=== PATIENT | male | born 1965 | race Caucasian/White ===

== ENCOUNTER → 2017-10-25 | Outpatient (CLI) | payer BC ==
--- NOTE | 2017-10-25 14:41 | MR ---
EXAMINATION TYPE: MR cervical spine wo con DATE OF EXAM: 10/25/2017 8:55 AM COMPARISON: NONE HISTORY: Pain, numbness and tingling into left arm Multiplanar MultiSpin echo imaging of the cervical spine was performed. Comparison: none C2-C3: No evidence for degenerative disc disease. No disc bulge/herniation or protrusion. No Canal stenosis. Foramina are patent bilaterally. C3-C4: No evidence for degenerative disc disease. No disc bulge/herniation or protrusion. No Canal stenosis. Degenerative changes cervical apophyseal joints with left foraminal encroachment. Moderate to severe in degree. C4-C5: No evidence for degenerative disc disease. No disc bulge/herniation or protrusion. No Canal stenosis. Foramina are patent bilaterally. C5-C6: There is mild disc desiccation. Right paracentral disc bulge with partial encapsulating spur r esulting in right foraminal encroachment. No evidence for central stenosis or cord contact. C6-C7: No evidence for degenerative disc disease. No disc bulge/herniation or protrusion. No Canal stenosis. Foramina are patent bilaterally. C7-T1: No evidence for degenerative disc disease. No disc bulge/herniation or protrusion. No Canal stenosis. Foramina are patent bilaterally. Cervical segments are intact. There is normal alignment. Cervical spinal cord is of normal signal. Craniovertebral junction relationships are within normal limits. IMPRESSION: 1. Right paracentral disc endplate complex C5-6 resulting in right foraminal encroachment. 2. Left foraminal encroachment at C3-4.
== END | disposition home or self-care (01) ==
LOC: RADMRIMAIN 07:54
PROVIDERS: ATTEND Family Medicine
DX: M54.2 Cervicalgia (principal)
CPT/HCPCS: 72141

== ENCOUNTER → 2018-01-02 | Outpatient (CLI) | payer BC ==
[2017-12-31 15:47] VITALS: BMI 27.1
[2018-01-02 13:03] VITALS: BP 147/93; PULSE 87; RESP 18; TEMP 98
--- NOTE | 2018-01-03 08:35 | P.PAINPG ---
Subjective Progress Note Date: 01/02/18 ( leg whenever) Principal diagnosis: Cervical radiculopathy, cervical myofascial pain Is a very pleasant 52-year-old gentleman with a history of neck pain and left arm pain. This began when he was at work driving a high low. He reports he has significant difficulty now with turning his head to the side. When he turns it to the left he gets shooting pain down his left arm to approximately the mid humerus. He denies any right-sided symptoms. He denies any lumbar radicular symptoms. He denies any bowel or bladder dysfunction. 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 Objective - Vital Signs Vital signs: Vital Signs Temp 98 F 01/02/18 12:53 Pulse 87 01/02/18 12:53 Resp 18 01/02/18 12:53 BP 147/93 01/02/18 12:53 Pulse Ox - Exam General: Patient is not sedated. He appears in no acute distress. He answers all questions appropriate. Respiratory: Breathing is unlabored and without any audible wheezes Cardiac: Regular in rate and rhythm Abdomen: Soft nontender, nondistended Extremities: No cyanosis clubbing or edema Musculoskeletal: No focal motor deficits in the upper or lower extremities. Palpation of the left trapezius reveals a large trigger point. Pressing into this trigger point elicits left cervical radicular symptoms. Range of motion for neck rotation is decreased to the left and normal to the right. Neck flexion is decreased. Neck extension is normal. Spurling's maneuver is negative. Neurologic: No focal sensory deficits in the upper or lower extremities. Reflexes are normal and intact bilaterally in the extremities Assessment and Plan Assessment: Medications: I advised the patient to continue with conservative medications such as Tylenol or anti-inflammatory medications. Interventions: The patient may benefit from cervical trigger point injections or a cervical epidural steroid injection. He has not had any other conservative therapy including physical therapy. I discussed with him the risks and benefits of both of these procedures. These include pneumothorax from the trigger point injections as well as potential bleeding infection nerve damage and headache from the cervical epidural steroid injection. I would strongly advised him to continue with a conservative course of therapy at this time. We could proceed with interventional procedures in the future if physical therapy does not alleviate his symptoms. Referrals: I referred the patient physical therapy for a one month treatment session. Testing ordered: None Psychological: He denies depression or anxiety. I will not refer him to a psychologist today. Follow-up: Patient will follow-up in our clinic in 1 month after he has completed physical therapy for reevaluation. (1) Cervical radiculopathy Current Visit: Yes Status: Acute Code(s): M54.12 - RADICULOPATHY, CERVICAL REGION SNOMED Code(s): 35079962 (2) Myofascial pain syndrome, cervical Current Visit: Yes Status: Acute Code(s): M79.1 - MYALGIA SNOMED Code(s): 890694943 PQRS Measure Charge Sheet Measure #130: Documentation of Current Meds in Medical Chart: Patient not eligible for medications to be documented Measure #226: Tobacco Use: Screen & Cessation Intervention: Pt screened for tobacco use AND intervention given Measure #111: Pneumonia Vaccination: Pneumococcal vaccine NOT administered or previously given Measure #47: Advance Care Plan: Advance care planning discussed & documented, pt chose/unable to give Measure #412: Opioid Treatment Agreement: No documentation of signed opioid treatment agreement Measure #408: Opioid Therapy Follow-up Evaluation: Patient had NO f/u eval minimum every 3 months during opioid therapy Measure #317: Preventitive Care & Scrn High Bld Press & F/U: Normal blood pressure, f/u not required Measure #128: Body Mass Index (BMI) Screening & Follow-up: BMI documented within normal parameters Measure #131: Pain Assessment & Follow-up: Pain positive & plan documented Measure #431: Unhealthy Alcohol Use Preventative Care & Scrn: Patient not identified as an unhealthy alcohol user PQRS Narrative: Smoking Status Current every day smoker Do You Want the Pneumonia No Vaccine AT THIS TIME? Blood Pressure 147/93 Pain Intensity [Neck] 8 Scale Used Numeric (1 - 10) Hx Alcohol Use (MH) No Home Medications: Ambulatory Orders Dulaglutide [Trulicity] 1.5 mg SQ FR 12/31/17 Insulin Degludec [Tresiba Flextouch U-200] 16 unit SQ QAM 12/31/17 Montelukast [Singulair] 10 mg PO HS 12/31/17 Naproxen Sodium [Aleve] 440 mg PO DAILY 12/31/17 metFORMIN HCL [Glucophage] 500 mg PO BID 12/31/17 Controlled Substance Measures - Controlled Substance Measures Is patient prescribed a controlled substance at discharge?: No
== END | disposition home or self-care (01) ==
LOC: PNWHC3 12:01
PROVIDERS: ATTEND Pain Medicine Pain Medicine
DX: M54.12 Radiculopathy, cervical region (principal); M79.1 Myalgia; F17.200 Nicotine dependence, unspecified, uncomplicated; Z79.899 Other long term (current) drug therapy; Z79.84 Long term (current) use of oral hypoglycemic drugs; Z79.4 Long term (current) use of insulin
CPT/HCPCS: 99211

== ENCOUNTER → 2018-02-19 | Outpatient (CLI) | payer BC ==
[2018-02-19 11:54] VITALS: BP 176/97; PULSE 98; RESP 18; TEMP 98
--- NOTE | 2018-02-20 07:21 | P.PAINPG ---
Subjective Progress Note Date: 01/19/18 This is a follow-up visit for this 52 years old male with a chronic history of severe neck pain, patient diagnosed with cervical foraminal stenosis and cervical bulging disc disease, and myofascial pain syndrome, patiens was seen a few weeks ago and he was r referred ,to have physical therapy done, patient reported that he couldn't do physical therapy because of his working schedule, he cannot take times off, to do physical therapy, and he is asking if anything else can be done to improve and treat his pain, he denies any motor or sensory deficits he denies any change in the bowel movement or urination he denies any fever or night sweats Objective - Vital Signs Vital signs: Vital Signs Temp 98 F 02/19/18 11:46 Pulse 98 02/19/18 11:46 Resp 18 02/19/18 11:46 BP 176/97 02/19/18 11:46 Pulse Ox 97 02/19/18 11:46 Intake & Output 02/19/18 02/20/18 02/20/18 18:59 06:59 18:59 Weight 93.44 kg - Exam Physical Examinations : 1-Constitutiona : Cooperative , not in acute distress . 2-HEENT : nech ; supple , no Lymphadenopathy , normal thyroid size . eyes : no ptosis , no icterus , no photophobia . ENT : normal of hearing , normal oropharynx , no Thrush . 3- Respiratory : Chest clear to auscultations Bilaterally , no wheezing , no Rhonchi . 4- Cardiovascular : regular rate and rhythem , S1 , S2 , no S3 , no S4. 5- Gastrointestinal : abdomen soft no tenderness , bowel sounds , no organomegally . 6- Genitourinary : Defferred . 7- neurologic : Cranial nerve II to XII intact , no focal neurological deffecit . 8-psychatric : alert , oriented X 3 , appropriate affect , intact judgment and insight . 9-Lymphatic : no Lymphadenopathy . 10- musculoskeltal : Cervical Spine motor stregnth in the deltoid and biceps, normal right side , normal Left side motor stregnth biceps and the wrist extensors normal right side ,normal left side . motor stregnth in the triceps muscle . normal Right side , normal Left side deep tendon reflexes normal at the biceps , normal at Brachioradialis , normal at triceps. positive cervical facet loading test . Multiple trigger points in the cervical paravertebral muscles Lumber spine moter stegnth lower extremities ,thigh and legs 5/5 Right side , 5/5 Left side Assessment and Plan Assessment: Assessment and plan= chronic neck pain secondary to cervical bulging disc disease at C5 6, and cervical foraminal stenosis Myofascial pain syndrome cervical area. Patient could benefit from cervical epidural steroid injection, and trigger point injections cervical area and the rhomboid muscles and trapezius muscles Time with Patient: Less than 30 PQRS Measure Charge Sheet Measure #130: Documentation of Current Meds in Medical Chart: Patient's medications documented in chart Measure #226: Tobacco Use: Screen & Cessation Intervention: Pt screened for tobacco use AND intervention given Measure #111: Pneumonia Vaccination: Pneumococcal vaccine NOT administered or previously given Measure #47: Advance Care Plan: Advance care planning discussed & documented, pt chose/unable to give Measure #412: Opioid Treatment Agreement: No documentation of signed opioid treatment agreement Measure #408: Opioid Therapy Follow-up Evaluation: Patient had NO f/u eval minimum every 3 months during opioid therapy Measure #317: Preventitive Care & Scrn High Bld Press & F/U: Pre-hypertensive or hypertensive BP documented, pt will f/u with PCP Measure #128: Body Mass Index (BMI) Screening & Follow-up: BMI documented ABOVE normal parameters - f/u documented Measure #131: Pain Assessment & Follow-up: Pain positive & plan documented, Follow-up scheduled Measure #431: Unhealthy Alcohol Use Preventative Care & Scrn: Patient not identified as an unhealthy alcohol user PQRS Narrative: Smoking Status Current every day smoker Do You Want the Pneumonia No Vaccine AT THIS TIME? Blood Pressure 176/97 Pain Intensity [Lower Back] 7 Pain Intensity [Neck] 8 Scale Used Numeric (1 - 10) Hx Alcohol Use (MH) No Home Medications: Ambulatory Orders Dulaglutide [Trulicity] 1.5 mg SQ FR 12/31/17 Insulin Degludec [Tresiba Flextouch U-200] 32 unit SQ QAM 12/31/17 Montelukast [Singulair] 10 mg PO HS 12/31/17 Naproxen Sodium [Aleve] 440 mg PO DAILY 12/31/17 metFORMIN HCL [Glucophage] 500 mg PO BID 12/31/17 Controlled Substance Measures - Controlled Substance Measures Is patient prescribed a controlled substance at discharge?: No When asked, does pt state using other controlled substances?: No If prescribed controlled substance>3 days was MAPS reviewed?: No If Rx opioid, was Start Talking consent form obtained?: No If opioid is for acute pain is fill amount 7 days or less?: No Was information provided regarding opioid addiction?: No
== END | disposition home or self-care (01) ==
LOC: PNWHC3 11:37
PROVIDERS: ATTEND Specialist
DX: G89.29 Other chronic pain (principal); M99.71 Connective tissue and disc stenosis of intervertebral foramina of cervical region; M50.322 Other cervical disc degeneration at C5-C6 level; M79.1 Myalgia; F17.200 Nicotine dependence, unspecified, uncomplicated
CPT/HCPCS: 99211

== ENCOUNTER 2018-02-28 06:42 | Day surgery (SDC) | payer BC ==
[2018-02-26 11:04] VITALS: BMI 27.9
[2018-02-28] MEDS ORDERED: LACTATED RINGERS 1,000 ML IV SCH (07:00)
[2018-02-28 08:01] VITALS: RESP 16; TEMP 97.2
[2018-02-28 08:21] LABS: Glucose,Whole Blood 116 mg/dL (75-99)
--- NOTE | 2018-02-28 08:40 | P.PCN ---
Date of Procedure: 02/28/18 Procedure(s) Performed: . PROCEDURE 1. Cervical epidural steroid injection under fluoroscopic guidance, C7-T1 2. Cervical epidurogram. 3. Trigger points injection, cervical area , total of 3 trigger point injected ( 1 left side rhamboid, 1 left side suprascapular muscle, 1 right side suprascapular muscle ) PREOPERATIVE DIAGNOSIS: 1- Cervical Degenerative Disc Diseases 2- Cervical foraminal stenosis 3-myofascial pain syndrome and cervical area POSTOPERATIVE DIAGNOSIS: : same as pre -op diagnosis ANESTHESIA: Local anesthesia with lidocaine 1 % , and moderate sedation, with Versed 2 mg and Fentanyl 50 mcg. EBL 0 PROCEDURE INDICATION: The patient with neck pain and radiculitis unresponsive to conservative treatment consents for procedure. PROCEDURE DESCRIPTION / TECHNIQUE: The patient was seen and identified in the preoperative area. Risks, benefits, complications, including but not limited to infections ,bleeding , allergic reactions to the medications ,and not complete pain releife, and alternatives were discussed with the patient, the patient agreed to proceed with the procedure and signed the consent. Patient was taken to the OR and time out was completed. The patient was placed in the prone position on the procedure table. A pillow was placed under the patients chest to increase the cervical interlaminar space. The cervical area was prepped and draped in the usual sterile fashion. Vital signs were closely monitored during the procedure. Conscious sedation was used during the procedure to decrease patients anxiety. Using anterior-posterior fluoroscopy, the C7-T1 interlaminar space was identified and the skin over this site was marked and then infiltrated with 1% lidocaine subcutaneously. Subsequently, a 20-gauge 3-1/2-inch Tuohy epidural needle was inserted and advanced toward the epidural space by means of the `` hanging-drop technique and guided by AP and lateral fluoroscopy. The correct needle position in the epidural space was verified with the injection of 2 mL of the water soluble contrast dye Isovue-200 and observing an excellent epidurogram with the epidural spread of the dye, after negative aspiration for blood and CSF and in the absence of paresthesias. Again after negative aspiration, mixture containing 20 mg Dexamethasone and 2 ml of preservative- free normal saline injected and a washout of epidurogram was seen. Needle was withdrawn intact, skin was cleansed, and bandages were applied. then each the trigger point injected with ,ropivacaine 0.5% ,2 mL injected at each trigger point mentioned above, using 25-gauge needle, each of the trigger point injected after negative aspiration under was no paresthesia during the injection Complications= none. Disposition= patient was placed in supine position and transferred to the recovery room area in stable condition and there was no evidence of upper or lower extremity motor or sensory deficit after the procedure patient was discharged from recovery room after discharge criteria met and home discharge instructions was given by the staff and patient will follow with the pain clinic in 2-4 weeks
[2018-02-28] MEDS ORDERED: IV FLUID CONTINUATION 1,000 ML IV ONE ×2 (08:42)
--- NOTE | 2018-02-28 08:55 | FL ---
EXAMINATION TYPE: FL guided pain mgmt statistic DATE OF EXAM: 02/28/2018 HISTORY: Flouroscopy time 4 seconds of fluoroscopy provided. IMPRESSION: 1. Fluoroscopy time.
[2018-02-28 09:06] VITALS: BP 119/84; PULSE 94
== END 2018-02-28 09:22 | disposition home or self-care (01) ==
LOC: ORPAIN 06:42
PROVIDERS: ATTEND Specialist
DX: G89.29 Other chronic pain (principal); M50.122 Cervical disc disorder at C5-C6 level with radiculopathy; M48.02 Spinal stenosis, cervical region; M79.1 Myalgia; F17.200 Nicotine dependence, unspecified, uncomplicated; Z79.1 Long term (current) use of non-steroidal anti-inflammatories (NSAID); Z79.4 Long term (current) use of insulin; Z79.899 Other long term (current) drug therapy
CPT/HCPCS: 20553; 62321; J2250; J1100; J3010; Q9966; 20552

== ENCOUNTER → 2018-03-18 | Day surgery (SDC) | payer BC ==
[2018-03-12 14:12] VITALS: BMI 28.0
[~2018-03-18] MED LIST: LACTATED RINGERS 1,000 ML IV SCH
[2018-03-18 10:24] VITALS: TEMP 98
[2018-03-18 10:47] LABS: Glucose,Whole Blood 124 mg/dL (75-99)
--- NOTE | 2018-03-18 11:42 | P.PCN ---
Date of Procedure: 03/18/18 Surgeon: Vu Newby Pathology: none sent Condition: stable Disposition: PACU Description of Procedure: PROCEDURE 1. Cervical epidural steroid injection under fluoroscopic guidance at C7-T1 level in the left paramedian approach 2. Cervical epidurogram. 3-Trigger point injection in the left trapezius muscle and left supraspinatus muscle: PREOPERATIVE DIAGNOSIS: Cervical radiculopathy, cervical spondylosis without myelopathy, myofascial pain POSTOPERATIVE DIAGNOSIS: : Same as above ANESTHESIA: Local anesthesia with 1% lidocaine and IV moderate conscious sedation with Versed and Fentanyl . EBL 0 PROCEDURE INDICATION: The patient with neck pain and radiculopathy unresponsive to conservative treatment consents for procedure. PROCEDURE DESCRIPTION / TECHNIQUE: The patient was seen and identified in the preoperative area. Risks, benefits, complications, including but not limited to infections ,bleeding , allergic reactions to the medications ,and not complete pain relief, and alternatives were discussed with the patient, the patient agreed to proceed with the procedure and signed the consent. Patient was taken to the OR and time out was completed. The patient was placed in the prone position on the procedure table. A pillow was placed under the patients chest to increase the flexion of the cervical spine . The cervical area was prepped and draped in the usual sterile fashion. Vital signs were closely monitored during the procedure. Conscious sedation was used during the procedure to decrease patients anxiety. Using anterior-posterior fluoroscopy, the C7-T1 interlaminar space was identified and the skin over this site was marked and then infiltrated with 1% lidocaine subcutaneously. Subsequently, a 20-gauge 3-1/2-inch Tuohy epidural needle was inserted and advanced toward the epidural space by means of loss of resistance to air technique and guided by AP and lateral fluoroscopy. The needle tip contacted the lamina of T1 vertebra first, then it was walked off the bone and into the epidural space using the loss of to air and fluoroscopic guidance to identify the epidural space. The correct needle position in the epidural space was verified with the injection of 1 mL of the water soluble contrast dye Isovue and observing an excellent epidurogram with the epidural spread of the dye, after negative aspiration for blood and CSF and in the absence of paresthesias. Again after negative aspiration, a 5 ml mixture containing 10 mg of Decadron and 4 ml of preservative free Normal Saline solution was injected and a washout of epidurogram was seen. Needle was withdrawn intact, skin was cleansed, and bandages were applied. Then I turned my attention into doing the trigger point injection in the above- mentioned muscles using 25-gauge 1-1/2 inch needle and injected 1 mL of ropivacaine 0.5% with total of 2 MLS injected. The patient tolerated procedure well and he was transferred to PACU in stable condition.
[2018-03-18 12:05] VITALS: BP 133/83; PULSE 82; RESP 15
[2018-03-18 12:31] LABS: Glucose,Whole Blood 100 mg/dL (75-99)
--- NOTE | 2018-03-18 14:15 | FL ---
Fluoroscopy HISTORY: Pain 3 seconds fluoroscopy time supplied to the referring clinician. 1 intraoperative C-arm images docume nt the procedure. See dictated report from anesthesia.
== END ==
LOC: ORPAIN 09:41
PROVIDERS: ATTEND Anesthesiology
DX: G89.29 Other chronic pain (principal); M47.22 Other spondylosis with radiculopathy, cervical region; M79.18 Myalgia, other site; M50.123 Cervical disc disorder at C6-C7 level with radiculopathy; M48.03 Spinal stenosis, cervicothoracic region; E11.9 Type 2 diabetes mellitus without complications; F17.200 Nicotine dependence, unspecified, uncomplicated; Z79.1 Long term (current) use of non-steroidal anti-inflammatories (NSAID); Z79.4 Long term (current) use of insulin; Z79.899 Other long term (current) drug therapy
CPT/HCPCS: 20552; 62321; J2250; J1100; J3010; Q9966; 99152

== ENCOUNTER → 2018-05-07 | Outpatient (CLI) | payer BC ==
[2018-05-07 12:02] VITALS: BP 137/77; PULSE 95
--- NOTE | 2018-05-07 15:29 | P.PN ---
Subjective Progress Note Date: 05/07/18 This is a follow-up visit for this 53 years old male with a chronic history of severe neck pain, patient diagnosed with cervical foraminal stenosis and cervical bulging disc disease, and myofascial pain syndrome, we did cervical epidural steroid injection and trigger point injection, he continued to have severe neck pain, was referred to have physical therapy previously but he did not do it because of his working schedule, intensity of the pain 6/10 increased with any activity he denies any motor or sensory deficits he denies any change in the bowel movement or urination he denies any fever or night sweats Physical Examinations : 1-Constitutiona : Cooperative , not in acute distress . 2-HEENT : nech ; supple , no Lymphadenopathy , normal thyroid size . eyes : no ptosis , no icterus , no photophobia . ENT : normal of hearing , normal oropharynx , no Thrush . 3- Respiratory : Chest clear to auscultations Bilaterally , no wheezing , no Rhonchi . 4- Cardiovascular : regular rate and rhythem , S1 , S2 , no S3 , no S4. 5- Gastrointestinal : abdomen soft no tenderness , bowel sounds , no organomegally . 6- Genitourinary : Defferred . 7- neurologic : Cranial nerve II to XII intact , no focal neurological deffecit . 8-psychatric : alert , oriented X 3 , appropriate affect , intact judgment and insight . 9-Lymphatic : no Lymphadenopathy . 10- musculoskeltal : Cervical Spine motor stregnth in the deltoid and biceps, normal right side , normal Left side motor stregnth biceps and the wrist extensors normal right side ,normal left side . motor stregnth in the triceps muscle . normal Right side , normal Left side deep tendon reflexes normal at the biceps , normal at Brachioradialis , normal at triceps. positive cervical facet loading test . Multiple trigger points in the cervical paravertebral muscles Lumber spine moter stegnth lower extremities ,thigh and legs 5/5 Right side , 5/5 Left side Assessment and plan= chronic neck pain secondary to cervical bulging disc disease at C5 6, and cervical foraminal stenosis Myofascial pain syndrome cervical area. Patient continued to have severe neck pain after cervical epidural steroid injections and trigger point injections twice he could benefit from physical therapy evaluation and treatment (Refferal given ) He could benefit from Lyrica 25 mg 3 times a day , and Flexeril 10 mg twice a day. He'll follow up with the pain clinic in 2 months. PQRS Measure Charge Sheet Measure #130: Documentation of Current Meds in Medical Chart: Patient's medications documented in chart Measure #226: Tobacco Use: Screen & Cessation Intervention: Pt screened for tobacco use AND intervention given Measure #111: Pneumonia Vaccination: Pneumococcal vaccine NOT administered or previously given Measure #47: Advance Care Plan: Advance care planning discussed & documented, pt chose/unable to give Measure #412: Opioid Treatment Agreement: No documentation of signed opioid treatment agreement Measure #408: Opioid Therapy Follow-up Evaluation: Patient had NO f/u eval minimum every 3 months during opioid therapy Measure #317: Preventitive Care & Scrn High Bld Press & F/U: normal BP 137/77 documented, pt will f/u with PCP Measure #128: Body Mass Index (BMI) Screening & Follow-up: BMI documented ABOVE normal parameters - f/u documented Measure #131: Pain Assessment & Follow-up: Pain positive & plan documented, Follow-up scheduled Measure #431: Unhealthy Alcohol Use Preventative Care & Scrn: Patient not identified as an unhealthy alcohol user PQRS Narrative: - Controlled Substance Measures Is patient prescribed a controlled substance at discharge?: No When asked, does pt state using other controlled substances?: No If prescribed controlled substance>3 days was MAPS reviewed?: No If Rx opioid, was Start Talking consent form obtained?: No If opioid is for acute pain is fill amount 7 days or less?: No Was information provided regarding opioid addiction?: No Objective - Vital Signs Vital signs: Vital Signs Temp Pulse 95 05/07/18 11:48 Resp BP 137/77 05/07/18 11:48 Pulse Ox 97 05/07/18 11:48 Intake & Output 05/06/18 05/07/18 05/07/18 18:59 06:59 18:59 Weight 93.894 kg
== END ==
LOC: PNWHC3 11:38
PROVIDERS: ATTEND Specialist
DX: G89.29 Other chronic pain (principal); M99.71 Connective tissue and disc stenosis of intervertebral foramina of cervical region; M50.222 Other cervical disc displacement at C5-C6 level; M79.18 Myalgia, other site; Z79.891 Long term (current) use of opiate analgesic
CPT/HCPCS: 99211

== ENCOUNTER → 2020-03-15 | Outpatient (CLI) | payer BC ==
[2020-03-15 11:40] VITALS: BP 163/95; PULSE 100; RESP 18; TEMP 98.1
--- NOTE | 2020-03-15 12:01 | P.PN ---
Subjective Progress Note Date: 03/15/20 This is a 55-year-old gentleman with history of neck pain with radiation to both shoulders. The pain used to go down his left arm to the left hand with numbness and tingling however her to stop doing that anymore. The patient is having physical therapy at this point but because of the limited range of motion of the cervical spine he was referred to us by his physical therapist to try injections. He did have cervical epidural steroid injection previously and the trigger point injection which gave him only very short period of pain relief less than a week. His cervical spine MRI which was done in 2018 showed right paracentral disc endplate complex at C5-C6 level resulting in the right foraminal encroachment and also left foraminal encroachment at C3-C4 level. Patient denies new-onset weakness, bowel/bladder incontinence, or any other signs or symptoms of cauda equina syndrome. There are no signs of acute intoxication, and no indications of medication diversion or overuse. In addition to above, 13-point review of systems is also negative for chest p ain, shortness of breath, changes in vision, changes in hearing, new onset weakness, abdominal pain, diarrhea, extreme fatigue, malaise, fever, skin changes, homicidal or suicidal ideation, or bowel or bladder incontinence. Vital Signs: Reviewed in EMR Gen: AAOx3, NAD HEENT: PERRLA,hearing grossly normal Pulm: resp unlabored Neck: supple, trachea midline Neuro exam of the upper extremities: Normal muscle strength bilaterally and symmetrically Mild decrease in the range of motion of the cervical spine especially to left rotation Mild tenderness in the cervical paravertebral musculature Normal and nonpainful range of motion of the shoulder joints bilaterally Neuro: CN II-XII grossly intact, Imaging: Reviewed in EMR/chart Assessment: Cervical spondylosis without myelopathy History of left cervical radiculopathy however no upper extremity paresthesia or pain at this point Diabetes Plan: 1. Explanation: Opioid and psychological risk scores were reviewed. Diagnoses, prognoses, and multiple treatment options including but not limited to physical therapy, interventional therapies, adjuvant medical therapies, narcotic medication therapies, and surgery were discussed with the patient and all questions were answered to the patient's satisfaction. 2. Opioid agreement: Signed with the patient and the patient is warned not to use opioids while driving or before driving and not to combine opioids with benzodiazepines or alcohol. 3. Counseling: The patient was counseled extensively on SMOKING CESSATION, BODY MASS INDEX, EXERCISE. Specifically, the patient was instructed regarding the importance of smoking cessation, obesity, and exercise in the context of both chronic pain and overall health. 4. Procedures: Scheduled for cervical bilateral medial branch block for levels see 4, C5, and C6 under fluoroscopic guidance 5. Consultations: None 6. Investigations: None 7. Medications: None prescribed today 8. Disposition: Return to the above-mentioned procedure as soon as possible 9. Maps were reviewed and were appropriate. PQRS Measure Charge Sheet Measure #130: Documentation of Current Meds in Medical Chart: Patient's medications documented in chart Measure #226: Tobacco Use: Screen & Cessation Intervention: Pt screened for tobacco use AND intervention given Measure #111: Pneumonia Vaccination: Pneumococcal vaccine NOT administered or previously given Measure #47: Advance Care Plan: Advance care planning discussed & documented, pt chose/unable to give Measure #412: Opioid Treatment Agreement: No documentation of signed opioid treatment agreement Measure #408: Opioid Therapy Follow-up Evaluation: Patient had NO f/u eval minimum every 3 months during opioid therapy Measure #317: Preventitive Care & Scrn High Bld Press & F/U: normal BP 137/77 documented, pt will f/u with PCP Measure #128: Body Mass Index (BMI) Screening & Follow-up: BMI documented ABOVE normal parameters - f/u documented Measure #131: Pain Assessment & Follow-up: Pain positive & plan documented, Follow-up scheduled Measure #431: Unhealthy Alcohol Use Preventative Care & Scrn: Patient not identified as an unhealthy alcohol user PQRS Narrative: - Controlled Substance Measures Is patient prescribed a controlled substance at discharge?: No When asked, does pt state using other controlled substances?: No If prescribed controlled substance>3 days was MAPS reviewed?: No If Rx opioid, was Start Talking consent form obtained?: No If opioid is for acute pain is fill amount 7 days or less?: No Was information provided regarding opioid addiction?: No Objective - Vital Signs Vital signs: Vital Signs Temp 98.1 F 03/15/20 11:32 Pulse 100 03/15/20 11:32 Resp 18 03/15/20 11:32 BP 163/95 03/15/20 11:32 Pulse Ox 95 03/15/20 11:32
== END | disposition home or self-care (01) ==
LOC: PNWHC3 11:04
PROVIDERS: ATTEND Anesthesiology
DX: M47.812 Spondylosis without myelopathy or radiculopathy, cervical region (principal); M79.642 Pain in left hand; Z87.39 Personal history of other diseases of the musculoskeletal system and connective tissue
CPT/HCPCS: 99211

== ENCOUNTER 2020-04-16 12:06 | Day surgery (SDC) | payer BC ==
[2020-04-16 12:44] VITALS: RESP 16; TEMP 96.9
[2020-04-16 12:45] LABS: Glucose,Whole Blood 125 mg/dL (75-99)
[2020-04-16] MEDS ORDERED: LIDOCAINE 1% (10MG/ML) FOR IV START INTRADERMA ONE (12:45)
[2020-04-16] MEDS ORDERED: fentaNYL (PF) 50 MCG/ML 2 ML AMP ONE (13:55)
[2020-04-16] MEDS ORDERED: MIDAZOLAM 2 MG/2 ML VIAL ONE (13:55)
[2020-04-16] MEDS ORDERED: ROPIVACAINE 5MG/ML 20ML VIAL ONE (13:55)
[2020-04-16] MEDS ORDERED: DEXAMETHASONE SOD PHOSPHATE 10 MG/ML 1 ML VIAL ONE (13:55)
--- NOTE | 2020-04-16 14:24 | P.PCN ---
Date of Procedure: 04/16/20 Surgeon: Vu Newby Pathology: none sent Condition: stable Disposition: PACU Description of Procedure: PREOPERATIVE DIAGNOSIS: Cervical Spondylosis with Facet Arthropathy.without myelopathy POSTOPERATIVE DIAGNOSIS: Cervical Spondylosis Facet Arthropathy. Without myelopathy PROCEDURES: Diagnostic Bilateral. C4,5 and 6, medial branchs block with fluoroscopic guidance ANESTHESIA: Local with 1% lidocaine; IV sedation with Versed. EBL: Minimal PROCEDURE INDICATION: The patient with neck pain secondary to cervical arthropathy unresponsive to more conservative treatments. PROCEDURE DESCRIPTION / TECHNIQUE: The patient was seen and identified in the preoperative area. Risks, benefits, complications, and alternatives were discussed with the patient, the patient agreed to proceed with the procedure and signed the consent. IV was started. Vital signs remained stable throughout the procedure. Patient was taken to the OR and time out was completed. The patient was placed in the supine position on the procedure table. . The cervical area was prepped with chloraprep and draped in the usual sterile fashion. Critical pause was taken. Vital signs were closely monitored during the procedure. Conscious sedation was used during the procedure to decrease patients anxiety. Using cross-table lateral fluoroscopy, the center of the trapezoid of C4,C5 , and C6 , was identified, marked, and localized with 1% lidocaine 1 ml at each level for skin and Sub Q infiltrations . Subsequently, a 25 G 3.5 inch spinal needle was advanced guided by fluoroscopy to the centroid of the trapezoid of C4,C5, and C6 ,a. Subsequently, 3 ml of preservative-free Ropivacaine 0.5% mixed with Dexamethasone 10 mg and half ml of the mixture was injected at each level after negative aspiration for blood and CSF. [place] were then removed intact the same procedure was repeated on the opposite side COMPLICATIONS: No acute complications. The picture of the final needle placement was saved to the C-arm machine COMMENTS: DISPOSITION / PLANS: The patient was placed in a supine position and transferred to the recovery area in a stable condition for observation and was discharged from the recovery room after meeting discharge criteria. Home discharge instructions given to the patient by the staff. The patient was reexamined prior to discharge. The patient will schedule a follow up in the clinic in 2-4 weeks.
[2020-04-16] MEDS ORDERED: IV FLUID CONTINUATION 1,000 ML IV ONE (14:29)
[2020-04-16 14:49] VITALS: BP 135/88; PULSE 81
--- NOTE | 2020-04-16 16:09 | FL ---
EXAMINATION TYPE: FL guided pain mgmt statistic DATE OF EXAM: 04/16/2020 FLUOROSCOPY Fluoroscopy time of 19 seconds was used during pain intervention procedure. 4 image/s document/s the procedure.
== END 2020-04-16 15:17 | disposition home or self-care (01) ==
LOC: ORPAIN 12:06
PROVIDERS: ATTEND Anesthesiology
DX: M47.812 Spondylosis without myelopathy or radiculopathy, cervical region (principal); E11.9 Type 2 diabetes mellitus without complications; I10 Essential (primary) hypertension; K08.409 Partial loss of teeth, unspecified cause, unspecified class; J45.909 Unspecified asthma, uncomplicated; F17.210 Nicotine dependence, cigarettes, uncomplicated; Z91.018 Allergy to other foods; Z79.51 Long term (current) use of inhaled steroids; Z79.899 Other long term (current) drug therapy; Z79.1 Long term (current) use of non-steroidal anti-inflammatories (NSAID); Z79.4 Long term (current) use of insulin
CPT/HCPCS: 64490; 64491; J2250; J1100; J3010; J2795

== ENCOUNTER 2020-05-14 09:09 | Day surgery (SDC) | payer BC ==
[2020-05-13 11:53] VITALS: BMI 29.2
[2020-05-14 09:42] VITALS: RESP 16; TEMP 97
[2020-05-14] MEDS ORDERED: ROPIVACAINE 5MG/ML 20ML VIAL ONE (10:37)
[2020-05-14] MEDS ORDERED: TRIAMCINOLONE ACETONIDE 40 MG/ML 1 ML VIAL ONE ×2 (10:37)
[2020-05-14] MEDS ORDERED: MIDAZOLAM 2 MG/2 ML VIAL ONE (10:37)
[2020-05-14] MEDS ORDERED: methylPREDNISolone ACETATE 40 MG/ML 1 ML VIAL ONE (10:37)
--- NOTE | 2020-05-14 11:03 | P.PCN ---
Date of Procedure: 05/14/20 Procedure(s) Performed: PREOPERATIVE DIAGNOSIS: Cervical Spondylosis with Facet Arthropathy.without myelopathy POSTOPERATIVE DIAGNOSIS: Cervical Spondylosis Facet Arthropathy. Without myelopathy. PROCEDURES: Diagnostic bilateral C4 , C5 , and C6 medial branch blocks, with fluoroscopic guidance (fluoroscopy images available in radiology department ) ( to target the facet joint at C4- 5 , C5- 6 ) # 2nd ANESTHESIA: Monitored anesthesia care provided by anesthesia department EBL: Minimal PROCEDURE INDICATION: The patient with neck pain secondary to cervical arthropathy unresponsive to more conservative treatments. PROCEDURE DESCRIPTION / TECHNIQUE: The patient was seen and identified in the preoperative area. Risks, benefits, complications, and alternatives were discussed with the patient, the patient agreed to proceed with the procedure and signed the consent. IV was started. Vital signs remained stable throughout the procedure. Patient was taken to the OR and time out was completed. The patient was placed in the prone position on the procedure table. A pillow was placed under the patients chest to increase the cervical interlaminar space. The cervical area was prepped and draped in the usual sterile fashion. Critical pause was taken. Vital signs were closely monitored during the procedure. Conscious sedation was used during the procedure to decrease patients anxiety. Using cross-table lateral fluoroscopy, the centroid of the trapezoid of right C4 , C5 and C6, was identified, marked, and localized with 1% lidocaine 1 ml at each level for skin and Sub Q infiltrations . Subsequently, a 22 G 3 spinal needle was advanced guided by fluoroscopy to the centroid of the trapezoid of Right C4 , C5, C6 . [place] tip position was confirmed at the centroid of the trapezoids of Right C4 , C5 ,C6 with anteroposterior fluoroscopy. Subsequently, 1.5 ml of preservative-free Ropivacaine 0.5% mixed with Depo- Medrol 20 mg and half ml of the mixture was injected after negative aspiration for blood and CSF. [place] was then removed intact the same procedure was repeated at the left C4 , C5 , and C6 levels. COMPLICATIONS: No acute complications DISPOSITION / PLANS: The patient was placed in a supine position and transferred to the recovery area in a stable condition for observation and was discharged from the recovery room after meeting discharge criteria. Home discharge instructions given to the patient by the staff. The patient was reexamined prior to discharge. The patient will schedule a follow up in the clinic in 2-4 weeks.
[2020-05-14] MEDS ORDERED: IV FLUID CONTINUATION 400 ML IV ONE (11:08)
[2020-05-14 11:30] VITALS: BP 113/71; PULSE 89
[2020-05-14 11:37] LABS: Glucose,Whole Blood 105 mg/dL (75-99)
--- NOTE | 2020-05-14 13:24 | FL ---
Fluoroscopy HISTORY: Pain 13 seconds fluoroscopy time supplied to the referring clinician. 2 intraoperative C-arm images docum ent the procedure. See dictated report from anesthesia.
== END 2020-05-14 11:43 | disposition home or self-care (01) ==
LOC: ORPAIN 09:09
PROVIDERS: ATTEND Specialist
DX: M47.812 Spondylosis without myelopathy or radiculopathy, cervical region (principal); I10 Essential (primary) hypertension; J44.9 Chronic obstructive pulmonary disease, unspecified; E11.9 Type 2 diabetes mellitus without complications; F17.200 Nicotine dependence, unspecified, uncomplicated; Z79.4 Long term (current) use of insulin; Z79.899 Other long term (current) drug therapy
CPT/HCPCS: 64490; 64491; J2250; J1030; J2795

== ENCOUNTER → 2020-05-31 | Outpatient (CLI) | payer BC ==
[2020-05-31 11:13] VITALS: BP 146/87; PULSE 112; RESP 18; TEMP 98.4
--- NOTE | 2020-05-31 11:31 | P.PN ---
Progress Note - Text Progress Note Date: 05/31/20 55-year-old male presents for post procedure follow-up. He had cervical medial branch blocks at C4, C5, C6 bilaterally x 2. He reported greater than 80% relief for over 4 days with both diagnostic test. He's wishing to proceed with radiofrequency ablation. Pain today is a 6 out of 10 in severity bilateral neck worse with lateral rotation bilaterally. Describes it as a throbbing, aching sensation that radiates into his shoulders bilaterally. He noted in the 4 days post medial branch block and improvement in ADLs and activity level. Patient denies any new symptoms. Past medical history, past surgical history, and social history reviewed and unchanged from his previous visit. In addition to above, 13-point review of systems is also negative for chest pain, shortness of breath, changes in vision, changes in hearing, new onset weakness, abdominal pain, diarrhea, extreme fatigue, malaise, fever, skin changes, homicidal or suicidal ideation, or bowel or bladder incontinence. Vital Signs: Reviewed in EMR Gen: AAOx3, NAD HEENT: NCAT, EOMI, hearing grossly normal Pulm: resp unlabored Abd: soft, NT, ND Neck: supple, trachea midline ROM in flexion cervical spine: with his pain ROM in extension cervical spine: pain and -10 Cervical paravertebral tenderness: + bilateral Cervical Facet tenderness: plus sign bilateral Spurling's: + to Bilateral shoulder ROM in flexion lumbar spine: pain with flexion ROM in extension lumbar spine: pain with extension at -20 Lumbar paravertebral tenderness: negative Facet loading: + bilateral Imaging: Reviewed in EMR Assessment: 1. Cervical spondylosis 2. Lumbar spondylosis Plan: 1. Explanation: Opioid and psychological risk scores were reviewed. Diagnoses, prognoses, and multiple treatment options including but not limited to physical therapy, interventional therapies, adjuvant medical therapies, narcotic medication therapies, and surgery were discussed with the patient and all questions were answered to the patient's satisfaction. 2. Opioid agreement: None 3. Counseling: The patient was counseled extensively for 10 minutes on SMOKING CESSATION, BODY MASS INDEX, EXERCISE. Specifically, the patient was instructed regarding the importance of smoking cessation, obesity, and exercise in the context of both chronic pain and overall health. 4. Procedures: We'll schedule patient for bilateral cervical radiofrequency ablation of the medial branches of C4, C5, C6. The risks and benefits of the procedure were discussed which include but not limited to hematoma, infection, nerve injury/damage, and ineffectiveness. 5. Consultations: None 6. Investigations: None 7. Medications: None 8. Disposition: f/u for procedure as scheduled
== END | disposition home or self-care (01) ==
LOC: PNWHC3 10:45
PROVIDERS: ATTEND Anesthesiology
DX: M47.812 Spondylosis without myelopathy or radiculopathy, cervical region (principal); M47.816 Spondylosis without myelopathy or radiculopathy, lumbar region
CPT/HCPCS: 99211

== ENCOUNTER 2020-07-09 09:23 | Day surgery (SDC) | payer BC ==
[2020-07-08 11:44] VITALS: BMI 28.8
[~2020-07-09 09:23] MED LIST changes: +HYDROmorphone 0.5 MG/0.5 ML SYRINGE IVP PRN; +MIDAZOLAM 2 MG/2 ML VIAL IV PRN
[2020-07-09 09:48] VITALS: RESP 16; TEMP 96.9
[2020-07-09] MEDS ORDERED: LIDOCAINE 1% (10MG/ML) FOR IV START INTRADERMA ONE (09:53)
[2020-07-09 09:54] LABS: Glucose,Whole Blood 104 mg/dL (75-99)
[2020-07-09] MEDS ORDERED: fentaNYL (PF) 50 MCG/ML 2 ML AMP ONE (10:50)
[2020-07-09] MEDS ORDERED: ROPIVACAINE 5MG/ML 20ML VIAL ONE (10:50)
[2020-07-09] MEDS ORDERED: methylPREDNISolone ACETATE 40 MG/ML 1 ML VIAL ONE (10:50)
[2020-07-09] MEDS ORDERED: MIDAZOLAM 2 MG/2 ML VIAL ONE (10:50)
--- NOTE | 2020-07-09 11:45 | P.PCN ---
Date of Procedure: 07/09/20 Procedure(s) Performed: PREOPERATIVE DIAGNOSIS: Cervical spondylosis with Facet Arthropathy without myelopathy. POSTOPERATIVE DIAGNOSIS: Cervical spondylosis with Facet Arthropathy without myelopathy. PROCEDURES: Radiofrequency thermocoagulation bilateral C4, C5, C6 medial branch with Fluroscopy [place](fluoroscopy was available in etiology department ) (to denervate the facet joint at bilateral C4- 5 , C5- 6 ) ANESTHESIA: Monitored anesthesia care as per anesthesia department. EBL: Minimal PROCEDURE INDICATION: The patient with neck pain secondary to cervical arthropathy who had more than 50% relief of her pain with previous diagnostic cervical medial branch block. PROCEDURE DESCRIPTION / TECHNIQUE: The patient was seen and identified in the preoperative area. Risks, benefits, complications, and alternatives were discussed with the patient, the patient agreed to proceed with the procedure and signed the consent. IV was started. Vital signs remained stable throughout the procedure. Patient was taken to the OR and time out was completed. The patient was placed in the supine position on the procedure table. The cervical area was prepped and draped in the usual sterile fashion. Critical pause was taken. Vital signs were closely monitored during the procedure. Conscious sedation was used during the procedure to decrease patients anxiety. Using cross-table lateral fluoroscopy, the centroid of the trapezoid of right C4, C5, and C6 were identified, marked, and localized with 1% lidocaine. Subsequently, a 20 [id number] radiofrequency cannula with a 10-mm active tip was advanced guided by fluoroscopy to the centroid of the trapezoid of right C4, C5, and C6 . Needle tip position was confirmed at the centroid of the trapezoids of right C4, C5, and C6 with anteroposterior fluoroscopy. Each site then underwent sensory testing at 50 Hz and 0 to 1 volt and motor testing at 2 Hz and 0 to 3 volt with local stimulation, but no radicular symptoms down the arm. Thereafter each sites underwent radiofrequency thermocoagulation at 80 degrees celsius for 90 seconds after injecting 0.5 ml of PF Ropivacaine 0.5 %. After thermocoagulation, 1 ml of the block solution containing Depo-Medrol 20 mg and 5 mL of preservative-free normal saline was injected at the right C4, C5, and C6 levels after negative aspiration of CSF and blood and with no paresthesias. Cannulas were retracted while injecting lidocaine 1% until the needle is out. then The exact same procedure done on the left side at left C4 , C5, C6 then after the procedure was done ,Skin was cleansed and bandages were applied. COMPLICATIONS: No acute complications. DISPOSITION / PLANS: The patient was placed in a supine position and transferred to the recovery area in a stable condition for observation and was discharged from the recovery room after meeting discharge criteria. Home discharge instructions given to the patient by the staff. The patient was reexamined prior to discharge. The patient will schedule a follow up in the clinic in 2-4 weeks.
[2020-07-09] MEDS ORDERED: IV FLUID CONTINUATION 1,000 ML IV ONE (11:53)
[2020-07-09 12:12] VITALS: BP 131/80; PULSE 86
--- NOTE | 2020-07-09 12:54 | FL ---
Fluoroscopy HISTORY: Pain 25 seconds fluoroscopy time supplied to the referring clinician. 4 intraoperative C-arm images docum ent the procedure. See dictated report from anesthesia.
== END 2020-07-09 12:23 | disposition home or self-care (01) ==
LOC: ORPAIN 09:23
PROVIDERS: ATTEND Specialist
DX: G89.29 Other chronic pain (principal); M47.812 Spondylosis without myelopathy or radiculopathy, cervical region; I10 Essential (primary) hypertension; J44.9 Chronic obstructive pulmonary disease, unspecified; E11.9 Type 2 diabetes mellitus without complications; Z79.84 Long term (current) use of oral hypoglycemic drugs; Z79.51 Long term (current) use of inhaled steroids; Z79.899 Other long term (current) drug therapy
CPT/HCPCS: 64633; 64634; J2250; J1030; J3010; J2795

== ENCOUNTER → 2020-07-26 | Outpatient (CLI) | payer BC ==
--- NOTE | 2020-07-26 11:14 | P.PN ---
Subjective Progress Note Date: 07/26/20 This is a 55-year-old gentleman with chronic neck pain status post bilateral cervical medial branch RFA . The patient's pain has improved significantly by at least 50% after this procedure and also his numbness in the left arm has improved greatly. The patient works full-time. Patient denies new-onset weakness, bowel/bladder incontinence, or any other signs or symptoms of cauda equina syndrome. There are no signs of acute intoxication, and no indications of medication diversion or overuse. In addition to above, 13-point review of systems is also negative for chest pain, shortness of breath, changes in vision, changes in hearing, new onset weakness, abdominal pain, diarrhea, extreme fatigue, malaise, fever, skin changes, homicidal or suicidal ideation, or bowel or bladder incontinence. Vital Signs: Reviewed in EMR Gen: AAOx3, NAD HEENT: PERRLA,hearing grossly normal Pulm: resp unlabored Neck: supple, trachea midline Neuro exam of the upper extremities: Normal muscle strength bilaterally Straight leg raising test: Panfilo's test: Range of motion of the lumbar spine: Facet loading test: Tenderness in the paravertebral musculature: Mild tenderness in the cervical paravertebral musculature bilaterally Neuro: CN II-XII grossly intact, Imaging: Reviewed in EMR/chart Assessment: Cervical spondylosis without myelopathy Diabetes Plan: 1. Explanation: Opioid and psychological risk scores were reviewed. Diagnoses, prognoses, and multiple treatment options including but not limited to physical therapy, interventional therapies, adjuvant medical therapies, narcotic medication therapies, and surgery were discussed with the patient and all questions were answered to the patient's satisfaction. 2. Opioid agreement: Signed with the patient and the patient is warned not to use opioids while driving or before driving and not to combine opioids with benzodiazepines or alcohol. 3. Counseling: The patient was counseled extensively on SMOKING CESSATION, BODY MASS INDEX, EXERCISE. Specifically, the patient was instructed regarding the importance of smoking cessation, obesity, and exercise in the context of both chronic pain and overall health. 4. Procedures: None 5. Consultations: None 6. Investigations: None 7. Medications: None 8. Disposition: Return to clinic as needed 9. Maps were reviewed and were appropriate.
[2020-07-26 11:22] VITALS: BP 157/104; PULSE 108; RESP 18; TEMP 97.6
== END | disposition home or self-care (01) ==
LOC: PNWHC3 10:59
PROVIDERS: ATTEND Anesthesiology
DX: M47.812 Spondylosis without myelopathy or radiculopathy, cervical region (principal); E11.9 Type 2 diabetes mellitus without complications
CPT/HCPCS: 99211

== ENCOUNTER → 2022-11-30 | Outpatient (CLI) | payer BC ==
--- NOTE | 2022-11-30 09:47 | XR ---
EXAMINATION TYPE: XR chest 2V DATE OF EXAM: 11/30/2022 9:34 AM COMPARISON: None TECHNIQUE: XR chest 2V Frontal and lateral views of the chest. CLINICAL INDICATION:Male, 57 years old with history of J44.9 copd; FINDINGS: Lungs/Pleura: There is no evidence of pleural effusion, focal consolidation, or pneumothorax. Chroni c senescent parenchymal change. Pulmonary vascularity: Unremarkable. Heart/mediastinum: Cardiomediastinal silhouette is unremarkable. Musculoskeletal: No acute osseous pathology. Mild degenerative changes of the thoracic spine. IMPRESSION: No acute cardiopulmonary disease/process.
--- NOTE | 2022-11-30 10:29 | MR ---
EXAMINATION TYPE: MR lumbar spine wo con DATE OF EXAM: 11/30/2022 10:09 AM COMPARISON: None. CLINICAL INDICATION: Male, 57 years old with history of M54.46 radiculopathy; Lumbar radicular pain m ore on left, herniated disc TECHNIQUE: Multi planar, multi sequence imaging was performed utilizing: T1-weighted, T2-weighted, a nd turbo inversion recovery imaging of the lumbar spine. IV Contrast: None. FINDINGS: Alignment: The lumbar vertebral bodies have preserved heights and alignment. Cord: The conus medullaris and the distal spinal cord appear unremarkable with regards to their signa l intensity and morphology. Bones/Discs: Bone signal is within normal limits. No abnormal bony edema on inversion recovery sequen skye. Multilevel disc degenerative is noted and most pronounced at the T12-L1 with osteophyte formatio n and mild disc space narrowing. Facet joint arthropathy seen throughout the spine..Intervertebral di sc signal is maintained. T12-L1: No evidence of significant spinal canal stenosis or neural foraminal stenosis. L1-L2: No evidence of significant spinal canal stenosis or neural foraminal stenosis. L2-L3: No evidence of significant spinal canal stenosis or neural foraminal stenosis. L3-L4: No evidence of significant spinal canal stenosis or neural foraminal stenosis. L4-L5: Disc bulge and facet joint arthropathy result in mild spinal canal and mild to moderate bilate ral neural foraminal stenosis. L5-S1: Extruded left disc herniation abutting the forming nerves on the left specifically S1-S2. The exiting L5-S1 nerve appears intact there is 13 mm of inferior migration. There is narrowing of the sp inal canal below the disc space secondary to disc herniation with at least moderate within the spinal canal within the sacrum. Other findings: None. IMPRESSION: L5-S1 disc herniation with inferior migration of disc material which abuts the forming left nerve leonardo ts in the spinal canal with moderate spinal canal stenosis within the spinal canal at the level of S1 .
== END | disposition home or self-care (01) ==
LOC: RADMRIMAIN 09:18
PROVIDERS: ATTEND Family Medicine
DX: M51.17 Intervertebral disc disorders with radiculopathy, lumbosacral region (principal); M48.07 Spinal stenosis, lumbosacral region; J44.9 Chronic obstructive pulmonary disease, unspecified
CPT/HCPCS: 71046; 72148

== ENCOUNTER → 2023-04-18 | Outpatient (CLI) | payer BC ==
--- NOTE | 2023-04-20 08:19 | MR ---
EXAMINATION TYPE: MR cervical spine wo con DATE OF EXAM: 04/18/2023 COMPARISON: 10/25/2017 HISTORY: Rt arm numbness CONTRAST: Performed utilizing mL intravenous gadolinium contrast. TECHNIQUE: Multiplanar multiecho imaging on a 3.0 Tuyet magnet is performed through the cervical spin e. FINDINGS: The craniovertebral junction is normal. Vertebral body alignment is normal. C7-T1: No focal disc herniation or significant disc bulge is evident. No spinal canal stenosis or n eural foraminal stenosis is present. C6-7: No focal disc herniation or significant disc bulge is evident. No spinal canal stenosis or sumit ral foraminal stenosis is present. C5-6: Right paracentral disc bulge is present with mild to moderate anterior thecal sac compression. Correlate with right C5 radicular symptoms. Bilateral foraminal stenosis appears to be present. C4-5: No focal disc herniation or significant disc bulge is evident. No spinal canal stenosis. Bilat eral foraminal stenosis from uncovertebral joint hypertrophy is present. C3-4: No focal disc herniation or significant disc bulge is evident. No spinal canal stenosis. Uncov ertebral joint hypertrophy is left foraminal stenosis. C2-3: No focal disc herniation or significant disc bulge is evident. No spinal canal stenosis or sumit ral foraminal stenosis is present. There may be some mild increased signal within the spinal cord posterior to the T1 vertebral level, e xample image series 401 image 9. This may be better visualized on the inversion recovery sequence, se evin 501 image 9. This appears to be central and slightly left posterior central in the axial plane. Series 601 image 11. Consideration for multiple sclerosis is recommended. IMPRESSION: 1. Oval 1.1 x 0.3 cm signal change within the spinal cord posterior to the T1 vertebral level. This a ppears to be an interval change from comparison. Correlate for multiple sclerosis. Other etiologies c ould be considered, MRI with contrast for additional evaluation is recommended. 2. There is uncovertebral joint hypertrophy contributing to foraminal stenosis discussed above. 3. Some asymmetric disc bulge with a right paracentral region C5-6 has moderate anterior thecal sac c ompression without cord deformity. Correlate with a C5 radicular symptoms.
== END | disposition home or self-care (01) ==
LOC: RADMRIMAIN 10:57
PROVIDERS: ATTEND Family Medicine
DX: M47.22 Other spondylosis with radiculopathy, cervical region (principal); M50.122 Cervical disc disorder at C5-C6 level with radiculopathy; M99.71 Connective tissue and disc stenosis of intervertebral foramina of cervical region
CPT/HCPCS: 72141

== ENCOUNTER → 2023-07-04 | Outpatient (CLI) | payer BC ==
--- NOTE | 2023-07-04 15:10 | MR ---
EXAMINATION TYPE: MR brain wo con DATE OF EXAM: 07/04/2023 COMPARISON: None HISTORY: 58-year-old male MS, G35.9. TECHNIQUE: Multiplanar, multisequence images of the brain and brainstem is performed without IV contrast. Diffus ion-weighted imaging is performed. Demyelinating disease protocol with additional Sagittal Flair sequ ence performed. FINDINGS: T2 Lesions Present : Yes Approximate Number of Lesions: Less than 5 in the left cerebral hemisphere and 5-10 in the right cere bral hemisphere. Locations Identified : Predominantly in a juxtacortical location. Size of Reference Lesion(s): All of the lesions are punctate measuring up to 3 mm. Enhancing Lesion(s) Present: Not assessed T1 Hypointense Lesion(s) Present: Not clearly identified. Change from Prior: No prior exams available for comparison. Diffusion weighted images demonstrate no evidence of a recent infarct or other diffusion abnormality. There is no worrisome extra-axial fluid collection. The ventricular system and cisternal spaces are normal in size and appearance. The brain volume is a ge appropriate. Midline structures demonstrate normal morphology. The craniocervical junction appears within normal limits. Major intracranial flow voids are intact. Moderate mucosal thickening ethmoid air cells. 1.2 cm mucosal retention cyst anterior left maxillary sinus. Globes are intact. IMPRESSION: 1. Nonspecific mild scattered burden of T2 bright white matter change as outlined above. 5 foci in th e left cerebral hemisphere and 5-10 in the right cerebral hemisphere. 2. No acute intracranial abnormality seen. 3. Moderate chronic ethmoid sinus disease. A 1.2 cm mucosal retention cyst left maxillary sinus.
== END | disposition home or self-care (01) ==
LOC: RADMRIMAIN 10:04
PROVIDERS: ATTEND Family Medicine
DX: G93.89 Other specified disorders of brain (principal); G35 Multiple sclerosis; J34.89 Other specified disorders of nose and nasal sinuses; J34.1 Cyst and mucocele of nose and nasal sinus
CPT/HCPCS: 70551

== ENCOUNTER 2023-08-15 19:46 | Emergency (ER) | payer BC ==
[2023-08-15] MEDS: MORPHINE SULFATE 4 MG/ML SYRINGE IVP STA (20:47)
[2023-08-15] MEDS: SODIUM CHLORIDE 0.9% 1,000 ML IV STA (20:48)
--- NOTE | 2023-08-15 21:21 | ED ---
Back Pain HPI - General Chief Complaint: Back Pain/Injury Stated Complaint: back pain Time Seen by Provider: 08/15/23 19:55 Source: patient, family Limitations: no limitations - History of Present Illness Initial Comments: 58-year-old male presented to the ED with a chief complaint of back pain. Patient states he has remote history of lower lumbar spinal stenosis and reports that he was previously seen by an orthopedic surgeon in [place] but has not followed up "in a while". Patient reports over the past 2 weeks has been having some increasing back pain with radiation down his left leg. Reports symptoms consistent with history of sciatica. Denies any recent injury. No incontinence or saddle anesthesia. No weakness. For this he is saw his PCP a week ago who prescribed him oxycodone and baclofen which she has been taking however despite this reports no relief prompting presentation to the ED for further evaluation. Patient also notes some associated intermittent nausea. States he has not had a bowel movement in about 4 to 5 days. No vomiting. No abdominal pain. No chest pain or shortness of breath. Denies urinary symptoms. No other complaints at this time. - Related Data Home Medications Medication Instructions Recorded Confirmed Dulaglutide [Trulicity] 1.5 mg SQ MO 12/31/17 07/09/20 Insulin Degludec [Tresiba 56 unit SQ QAM 12/31/17 07/09/20 Flextouch U-200] Montelukast [Singulair] 10 mg PO HS 12/31/17 07/09/20 Naproxen Sodium [Aleve] 500 mg PO BID 12/31/17 07/09/20 metFORMIN HCL [Glucophage] 1,000 mg PO BID 12/31/17 07/09/20 Albuterol Inhaler [Ventolin Hfa 1 puff INHALATION DAILY PRN 03/15/20 07/09/20 Inhaler] Cyclobenzaprine [Flexeril] 10 mg PO TID 03/15/20 07/09/20 Fluticasone Propion/Salmeterol 1 inhalation PO BID 03/15/20 07/09/20 [Advair 500-50 Diskus] Gabapentin [Neurontin] 100 mg PO TID 03/15/20 07/09/20 lisinopriL [Zestril] 5 mg PO DAILY 10/12/20 02/05/21 Allergies Allergy/AdvReac Type Severity Reaction Status Date / Time tomato Allergy Rash/Hives Verified 08/15/23 19:53 Review of Systems ROS Statement: Those systems with pertinent positive or pertinent negative responses have been documented in the HPI. ROS Other: All systems not noted in ROS Statement are negative. Past Medical History Past Medical History: COPD, Diabetes Mellitus Additional Past Medical History / Comment(s): neck pain radiating to shoulder from bulging disk History of Any Multi-Drug Resistant Organisms: None Reported Additional Past Surgical History / Comment(s): surgery for "ruptured septum"; pain procedures Past Anesthesia/Blood Transfusion Reactions: No Reported Reaction Past Psychological History: No Psychological Hx Reported Smoking Status: Current every day smoker Past Alcohol Use History: Rare Past Drug Use History: None Reported - Past Family History Mother Family Medical History: No Reported History General Exam Limitations: no limitations General appearance: alert Eye exam: Present: normal appearance Neck exam: Present: normal inspection Respiratory exam: Present: normal lung sounds bilaterally Cardiovascular Exam: Present: regular rate, normal rhythm GI/Abdominal exam: Present: soft (No tenderness to palpation. No rebound guarding or rigidity.), normal bowel sounds Extremities exam: Present: other (Positive straight leg raise on the left. Strength sensation of bilateral lower extremities equal and intact. DP/PT pulses palpable.) Back exam: Present: normal inspection, other (No midline spinal tenderness to palpation.) Neurological exam: Present: alert, oriented X3 Skin exam: Present: warm, dry Course Vital Signs 08/15/23 08/15/23 19:49 21:25 Temperature 98.0 F 97.6 F Pulse Rate 113 H 109 H Respiratory 18 20 Rate Blood Pressure 166/99 163/83 O2 Sat by Pulse 96 96 Oximetry Medical Decision Making - Medical Decision Making Was pt. sent in by a medical professional or institution (, PA, RETURN AGENT, urgent care, hospital, or fpc...) When possible be specific @ -No Did you speak to anyone other than the patient for history (EMS, parent, family, police, friend...)? What history was obtained from this source @ -No Did you review nursing and triage notes (agree or disagree)? Why? @ -I reviewed and agree with nursing and triage notes Were old charts reviewed (outside hosp., previous admission, EMS record, old EKG, old radiological studies, urgent care reports/EKG's, fpc records)? Report findings @ -No old charts were reviewed Differential Diagnosis (chest pain, altered mental status, abdominal pain women, abdominal pain men, vaginal bleeding, weakness, fever, dyspnea, syncope, headache, dizziness, GI bleed, back pain, seizure, CVA, palpatations, mental health, musculoskeletal)? @ -Differential Back Pain: Strain, zoster, cauda equina syndrome, epidural abscess, vertebral osteomyelitis, discitis, fracture, subluxation, disc herniation, DJD, spinal stenosis, dissection, AAA, pancreatitis, peptic ulcer disease, pyelonephritis, kidney stone, this is not meant to be an all-inclusive list. EKG interpreted by me (3pts min.). @ -As above X-rays interpreted by me (1pt min.). @ -KUB interpreted me which revealed no evidence of acute process CT interpreted by me (1pt min.). @ -CT lumbar spine interpreted me which revealed no evidence of acute process. U/S interpreted by me (1pt. min.). @ -None done What testing was considered but not performed or refused? (CT, X-rays, U/S, labs)? Why? @ -None What meds were considered but not given or refused? Why? @ -None Did you discuss the management of the patient with other professionals (professionals i.e. , PA, RETURN AGENT, lab, RT, psych nurse, social work msw, director trading, teacher, police commanding officer, case checker)? Give summary @ -No Was smoking cessation discussed for >3mins.? @ -No Was critical care preformed (if so, how long)? @ -No Were there social determinants of health that impacted care today? How? (Homelessness, low income, unemployed, alcoholism, drug addiction, transportation, low edu. Level, literacy, decrease access to med. care, long term, rehab)? @ -No Was there de-escalation of care discussed even if they declined (Discuss DNR or withdrawal of care, Hospice)? DNR status @ -No What co-morbidities impacted this encounter? (DM, HTN, Smoking, COPD, CAD, Cancer, CVA, ARF, Chemo, Hep., AIDS, mental health diagnosis, sleep apnea, morbid obesity)? @ -None Was patient admitted / discharged? Hospital course, mention meds given and route, prescriptions, significant lab abnormalities, going to OR and other pertinent info. @ -Discharge 58-year-old male presenting to the ED with a chief complaint of back pain radiating down his left leg. Reports history of spinal stenosis in the past and previously followed with an orthopedic surgeon in [place] however reports he has not seen this person in a while. Reports over the last 2 weeks has had in creasing pain. Last week seen by his PCP and given prescriptions for methocarbamol and oxycodone and despite this has had persistent pain. Also notes he has not had a bowel movement last 4 days. On exam patient has full strength and sensation bilateral lower extremities. Positive straight leg raise on the left. CT of the lumbar spine revealed no evidence of acute process. KUB showed no evidence of obstruction or other acute process. Discharged home in stable condition. Vital signs stable afebrile. Provided referral to see orthopedics and pain management. In regards to constipation advised stool softener use. Discussed return precautions with patient who verbalized agreement. Undiagnosed new problem with uncertain prognosis? @ -No Drug Therapy requiring intensive monitoring for toxicity (Heparin, Nitro, Insulin, Cardizem)? @ -No Were any procedures done? @ -No Diagnosis/symptom? @ -Back pain, constipation Acute, or Chronic, or Acute on Chronic? @ -Acute on chronic Uncomplicated (without systemic symptoms) or Complicated (systemic symptoms)? @ -Uncomplicated Side effects of treatment? @ -No Exacerbation, Progression, or Severe Exacerbation? @ -No Poses a threat to life or bodily function? How? (Chest pain, [place], [place], pneumonia, PE, COPD, DKA, ARF, appy, cholecystitis, CVA, Diverticulitis, Homicidal, Suicidal, threat to staff... and all critical care pts) @ -No Disposition Clinical Impression: Back pain, Constipation Disposition: HOME SELF-CARE Additional Instructions: Please return to the Emergency Department if symptoms worsen or any other concerns. Please follow-up with your PCP, orthopedics, and pain management. Continue medications previously prescribed for pain control. Is patient prescribed a controlled substance at d/c from ED?: No Referrals: Zay Brantley MD [Primary Care Provider] - 1-2 days Jose Tavarez DO [Doctor of Osteopathic Medicine] - 1-2 days Wilmer Devine MD [STAFF PHYSICIAN] - 1-2 days Decision Time: 23:12
[2023-08-15 22:04] VITALS: RESP 20
--- NOTE | 2023-08-15 22:14 | XR ---
EXAMINATION TYPE: XR KUB DATE OF EXAM: 08/15/2023 8:34 PM CLINICAL INDICATION:Male, 58 years old with history of r/o obstruction; COMPARISON: None. TECHNIQUE: One radiographic view of the abdomen was obtained. FINDINGS: The bowel gas pattern is nonspecific without dilated loops of small or large bowel. There i s no evidence for organomegaly or pneumoperitoneum. The osseous structures are intact. No abnormal calcifications are present. Fecal material and gas are demonstrated throughout the colon and rectum. IMPRESSION: Nonspecific bowel gas pattern without radiographic evidence for acute process.
[2023-08-15] MEDS: HYDROmorphone 1 MG/ML 1 ML SYRINGE IVP STA (22:30)
--- NOTE | 2023-08-15 22:50 | CT ---
EXAMINATION TYPE: CT lumbar spine wo con DATE OF EXAM: 08/15/2023 10:18 PM COMPARISON: MRI lumbar spine November 30, 2022 HISTORY: Lower back pain, stenosis, sciatica and states he has ruptured discs. CT DLP: 1045.6 mGycm Automated exposure control for dose reduction was used. Unenhanced CT of the lumbar spine was performed. Bone and soft tissue window settings are submitted as well as coronal and sagittal reconstructions. There are 5 lumbar type vertebra are identified. Lumbar spine shows stable and straightened alignment . No acute displaced fracture. Vertebral body heights and disc space heights are fairly well maintain ed. Prominent anterior spurring at T12-L1 level is again seen. No new large disc herniation is presen t. Spinal canal is fairly well preserved. There is mild facet arthropathy in the lower lumbar spine r edemonstrated. Paraspinal muscle bulk is preserved. Mild calcified plaque of the aorta extends into b ranch vessels. IMPRESSION: No acute findings are evident.
[2023-08-15 23:38] VITALS: BP 132/76; PULSE 98; TEMP 98.1
== END 2023-08-15 23:25 | disposition home or self-care (01) ==
LOC: EC 19:46
DX: M54.50 Low back pain, unspecified (principal); K59.00 Constipation, unspecified; E11.9 Type 2 diabetes mellitus without complications; J44.9 Chronic obstructive pulmonary disease, unspecified; F17.200 Nicotine dependence, unspecified, uncomplicated; Z79.4 Long term (current) use of insulin; Z79.84 Long term (current) use of oral hypoglycemic drugs; Z91.018 Allergy to other foods
CPT/HCPCS: 74018; 72131; 99284; 96374; 96375; 96361; J2270; J1170

== ENCOUNTER → 2023-08-27 | Outpatient (CLI) | payer BC ==
[2023-08-27 09:41] VITALS: BP 180/90; PULSE 89; RESP 15; TEMP 98.6
--- NOTE | 2023-08-27 14:18 | P.PAINPG ---
PQRS Measure Charge Sheet Comment: HISTORY OF PRESENT ILLNESS: A 58 yr old male as a referral from Dr Brantley presents today w severe and chronic LBP x 2 yrs secondary to DDD, spondylosis and facet arthropathy without myelopathy for evaluation. Pt states pain level is provoked at 8 /10 in intensity, constant, localized in the lumbar spine, predominantly axial, sharp in character w occasional shooting pain towards the BLEs. Pain is provoked by over activity and sitting for periods > 30 min. Pain is alleviated by PT x 6 wks in Spring 2022, physician guided home exercises 5 times weekly since Spring 2022, medications (Percocet 5/325mg #120, Neurontin 600mg #60), repositioning and rest. Oswestry axial pain score at 26. PMH: OA, HTN, COPD, NIDDM II PSH: DELLA C 7-T1 x2 (2017), BL RFA C4-C6 (2020), Septum Surgery SH: Daily tobacco use, Rare ETOH use, No illicit drug use FH: Mo- No Reported History All: See list Meds: See list REVIEW OF ORGAN SYSTEMS: CONSTITUTIONAL: No fevers or chills. No recent weight loss. NEUROLOGICAL: + numbness and tingling along the distal extremities. No seizure disorders or headaches. MUSCULOSKELETAL: + pain PSYCHIATRIC: Denies current depression or suicidal thoughts. Physical Examinations : Constitutional : Cooperative , not in acute distress . Neurologic : Cranial nerve II to XII intact. No focal neurological deficits. Psychiatric : alert & oriented x 3. Matching mood & appropriate affect. Judgment & insight intact. Musculoskeletal : Cervical Spine Motor strength in the deltoid and biceps: Normal right side. Normal Left side Motor strength biceps and the wrist extensors: Normal right side . Normal left side Motor strength in the triceps muscle: Normal right side. Normal left side Deep tendon reflexes: Normal at the biceps. Normal at Brachioradialis. Normal at triceps Vertebral body tenderness to deep palpation over Cervical facet loading test: positive bilaterally Spurling test: positive bilaterally Neck distraction test: positive bilaterally Eliana sign: positive bilaterally Lumbar spine Motor strength lower extremities ,thigh and legs 5/5 Right side , 5/5 Left side Deep tendon reflexes : Normal Knee Jerk. Normal Ankle Jerk Vertebral body tenderness over L5 Jimenez Test positive Lumbar facet Loading Test: positive Right / positive Left Range of motion of the lumbar spine Flexion 30 degrees, extension 10 degrees Straight Leg Raise test: Left/ Right positive at <20 degrees Abdelrahman test: positive right / positive left. Severe tenderness over the Sacroiliac joint on the Right / Left sides Gaenslen test: positive bilaterally Seated flexion test: positive bilaterally. Sacral spine : Severe tenderness over the Sacroiliac joint: right side / left side Range of motion: Flexion of the lumbar spine <60 degrees Range of motion: Extension of the lumbar spine <20 degrees Gaenslen's Test positive Abdelrahman test: positive right side / left side Thigh Thrust Test Sacral Thrust Test Imaging: CT non contrast of the lumbar spine from 08/15/23 reviewed Assessment/ Plan : Lumbar DDD Recommendation of DELLA L5-S1 #1. May need a series of injections for optimal pain relief. Risks, benefits of procedure discussed and patient verbalized understanding. Admits to anti- coagulant use or medical history of diabetes. Protocol for discontinuation/ continuation of medications saumya procedure discussed. All questions answered. I have spent greater than 30 minutes on patient care today. Dr Devine was available by phone for the evaluation of this patient. The time was used to review the medical records including relevant urine studies and Prescription history (MAPs), review of the available imaging, evaluation and examination of the patient, coordination of care with the medical staff and if applicable referring physicians, as well as creation of the medical record PQRS Narrative: Smoking Status Current every day smoker Hx Alcohol Use (MH) No Home Medications: Ambulatory Orders Dulaglutide [Trulicity] 1.5 mg SQ MO 12/31/17 Insulin Degludec [Tresiba Flextouch U-200] 56 unit SQ QAM 12/31/17 Montelukast [Singulair] 10 mg PO HS 12/31/17 Naproxen Sodium [Aleve] 500 mg PO BID 12/31/17 metFORMIN HCL [Glucophage] 1,000 mg PO BID 12/31/17 Albuterol Inhaler [Ventolin Hfa Inhaler] 1 puff INHALATION DAILY PRN 03/15/20 Cyclobenzaprine [Flexeril] 10 mg PO TID 03/15/20 Fluticasone Propion/Salmeterol [Advair 500-50 Diskus] 1 inhalation PO BID 03/15/20 Gabapentin [Neurontin] 100 mg PO TID 03/15/20 lisinopriL [Zestril] 5 mg PO DAILY 03/15/20 Controlled Substance Measures - Controlled Substance Measures Is patient prescribed a controlled substance at discharge?: No
== END ==
LOC: PNWHC3 08:26
PROVIDERS: ATTEND Specialist
DX: M51.36 Other intervertebral disc degeneration, lumbar region (principal); F17.200 Nicotine dependence, unspecified, uncomplicated; Z91.018 Allergy to other foods
CPT/HCPCS: 99211

== ENCOUNTER 2023-09-04 11:07 | Day surgery (SDC) | payer BC ==
[2023-09-04 11:36] LABS: Glucose,Whole Blood 129 mg/dL (70-110)
[2023-09-04] MEDS ORDERED: methylPREDNISolone ACETATE 40 MG/ML 1 ML VIAL ONE (11:38)
[2023-09-04] MEDS ORDERED: IOPAMIDOL M200 10 ML VIAL ONE (11:38)
--- NOTE | 2023-09-04 11:44 | P.PCN ---
Date of Procedure: 09/04/23 Description of Procedure: PREOPERATIVE DIAGNOSIS: lumbar radiculopathy POSTOPERATIVE DIAGNOSIS: Lumbar radiculopathy PROCEDURE 1. Lumbar epidural steroid injection under fluoroscopic guidance at the L5/S1 level. 2. Lumbar epidurogram. Imaging: Fluoroscopy was used, images where saved to the medical record ANESTHESIA: Patient re-evaluated immediately prior to sedation local only EBL: Minimal PROCEDURE INDICATION: The patient with low back pain and radiculitis symptoms unresponsive to conservative treatment. Fluoroscopy was used to optimize visualization of the needle placement and to maximize safety. PROCEDURE DESCRIPTION / TECHNIQUE: The patient was seen and identified in the preoperative area. Risks, benefits, complications including but not limited to infections, bleeding, allergic reaction to medications, nerve damage and incomplete pain relief, as well as alternatives to the procedure were discussed with the patient. The patient agreed to proceed with the procedure and signed the consent. IV was started if indicated above, and vital signs were stable. Patient was taken to the OR and time out was completed. The patient was placed in the prone position on procedure table and a pillow was placed under the abdomen to reduce lumbar lordosis. The lumbosacral area was prepped and draped in the usual sterile fashion. Vitals were closely monitored during the procedure. Using anterior-posterior fluoroscopy, the L5/S1 interlaminar space was identified and the skin over this site was marked and then infiltrated with 1% lidocaine subcutaneously. Subsequently, a 20-gauge Tuohy epidural needle was inserted and advanced toward the epidural space using the Loss of resistance technique and guided by AP and lateral fluoroscopy. The correct needle position in the epidural space was verified with the injection of 1 mL of Omnipaque 180 contrast to observe an acceptable epidurogram, after negative aspiration for b lood and CSF and in the absence of paresthesias. Again after negative aspiration, a 3 ml mixture containing 40mg of depomedrol and 2 ml of preservative free Normal Saline was injected and a washout of epidurogram was seen. Needle was withdrawn intact, skin was cleansed, and bandages were applied. COMPLICATIONS: None DISPOSITION / PLANS: The patient was placed in a supine position and transferred to the recovery area in a stable condition for observation. There was no evidence of lower extremity motor or sensory deficit after the procedure. Lora ent was discharged from the recovery room after meeting discharge criteria. Home discharge instructions were given to the patient by the staff. The patient was reexamined prior to discharge. The patient will follow up as directed.
[2023-09-04 12:06] VITALS: TEMP 97.5
[2023-09-04 12:07] VITALS: BP 130/77; PULSE 90
[2023-09-04 12:08] VITALS: RESP 15
[2023-09-04 12:12] LABS: Glucose,Whole Blood 108 mg/dL (70-110)
--- NOTE | 2023-09-04 13:12 | FL ---
EXAMINATION TYPE: FL guided pain mgmt statistic Intraoperative/procedural fluoroscopic services were provided. Total fluoroscopy time is 3.8 seconds with a total of 2 submitted images to PACS. Please se e the operative/procedural note for further details. DAP: [id number] mGym2
== END 2023-09-04 12:22 | disposition home or self-care (01) ==
LOC: ORPAIN 11:07
PROVIDERS: ATTEND Anesthesiology
DX: M54.16 Radiculopathy, lumbar region (principal); E11.9 Type 2 diabetes mellitus without complications; Z91.018 Allergy to other foods
CPT/HCPCS: 62323; J1030; Q9966

== ENCOUNTER → 2023-09-20 | Outpatient (CLI) | payer BC ==
--- NOTE | 2023-09-20 12:31 | XR ---
EXAMINATION TYPE: XR chest 2V DATE OF EXAM: 09/20/2023 12:02 PM CLINICAL INDICATION:Male, 58 years old with history of R05.9 cough; COMPARISON: None TECHNIQUE: XR chest 2V Frontal and lateral views of the chest. FINDINGS: Lungs/Pleura: There is no evidence of pleural effusion, focal consolidation, or pneumothorax. Pulmonary vascularity: Unremarkable. Heart/mediastinum: Cardiomediastinal silhouette is unremarkable. Musculoskeletal: No acute osseous pathology. Other findings: None IMPRESSION: No acute cardiopulmonary disease/process.
== END | disposition home or self-care (01) ==
LOC: RADXRMAIN 11:45
PROVIDERS: ATTEND Family Medicine
DX: R05.9 Cough, unspecified (principal)
CPT/HCPCS: 71046

== ENCOUNTER → 2023-09-20 | Outpatient (CLI) | payer BC | END | disposition home or self-care (01) | LOC: RADXRMAIN 11:07 | PROVIDERS: ATTEND Family Medicine | DX: Z53.9 Procedure and treatment not carried out, unspecified reason (principal) ==

== ENCOUNTER → 2023-09-20 | Outpatient (CLI) | payer BC ==
[2023-09-20 12:10] VITALS: BP 109/74; PULSE 101; RESP 16; TEMP 97.1
--- NOTE | 2023-09-20 13:33 | P.PAINPG ---
PQRS Measure Charge Sheet Comment: HISTORY OF PRESENT ILLNESS: A 58 yr old male presents today w severe and chronic LBP x 2 yrs secondary to DDD, spondylosis and facet arthropathy without myelopathy for evaluation s/p DELLA L5-S1 #1. Pt states he experienced 70 % pain relief x 2 wks s/p procedure. Pt states pain level is provoked at 8 /10 in intensity, intermittent, localized in the lumbar spine, predominantly axial, sharp in character w occasional shooting pain towards the BLEs. Pain is provoked by over activity and sitting for periods > 30 min. Pain is alleviated by PT x 6 wks in Spring 2022, physician guided home exercises 5 times weekly since Spring 2022, medications, repositioning and rest. Oswestry axial pain score at 25. Interventional procedures include DELLA L5-S1 x1 Medications include Percocet 5/325mg #120, Neurontin 600mg #60 REVIEW OF ORGAN SYSTEMS: CONSTITUTIONAL: No fevers or chills. No recent weight loss. NEUROLOGICAL: + numbness and tingling along the distal extremities. No seizure disorders or headaches. MUSCULOSKELETAL: + pain PSYCHIATRIC: Denies current depression or suicidal thoughts. Physical Examinations : Constitutional : Cooperative , not in acute distress . Neurologic : Cranial nerve II to XII intact. No focal neurological deficits. Psychiatric : alert & oriented x 3. Matching mood & appropriate affect. Judgment & insight intact. Musculoskeletal : Cervical Spine Motor strength in the deltoid and biceps: Normal right side. Normal Left side Motor strength biceps and the wrist extensors: Normal right side . Normal left side Motor strength in the triceps muscle: Normal right side. Normal left side Deep tendon reflexes: Normal at the biceps. Normal at Brachioradialis. Normal at triceps Vertebral body tenderness to deep palpation over Cervical facet loading test: positive bilaterally Spurling test: positive bilaterally Neck distraction test: positive bilaterally Eliana sign: positive bilaterally Lumbar spine Motor strength lower extremities ,thigh and legs 5/5 Right side , 5/5 Left side Deep tendon reflexes : Normal Knee Jerk. Normal Ankle Jerk Vertebral body tenderness over L5 Jimenez Test positive Lumbar facet Loading Test: positive Right / positive Left Range of motion of the lumbar spine Flexion 30 degrees, extension 10 degrees Straight Leg Raise test: Left/ Right positive at <20 degrees Abdelrahman test: positive right / positive left. Severe tenderness over the Sacroiliac joint on the Right / Left sides Gaenslen test: positive bilaterally Seated flexion test: positive bilaterally. Sacral spine : Severe tenderness over the Sacroiliac joint: right side / left side Range of motion: Flexion of the lumbar spine <60 degrees Range of motion: Extension of the lumbar spine <20 degrees Gaenslen's Test positive Abdelrahman test: positive right side / left side Thigh Thrust Test Sacral Thrust Test Imaging: CT non contrast of the lumbar spine from 08/15/23 reviewed Assessment/ Plan : Lumbar DDD Recommendation of L paramedian DELLA L5-0S1 #2. May need a series of injections for optimal pain relief. Risks, benefits of procedure discussed and patient verbalized understanding. Admits to anti- coagulant use or medical history of diabetes. Protocol for discontinuation/ continuation of medications saumya procedure discussed. All questions answered. I have spent greater than 30 minutes on patient care today. Dr Devine was available by phone for the evaluation of this patient. The time was used to review the medical records including relevant urine studies and Prescription history (MAPs), review of the available imaging, evaluation and examination of the patient, coordination of care with the medical staff and if applicable referring physicians, as well as creation of the medical record PQRS Narrative: Smoking Status Current every day smoker Hx Alcohol Use (MH) No Home Medications: Ambulatory Orders Dulaglutide [Trulicity] 1.5 mg SQ MO 12/31/17 Insulin Degludec [Tresiba Flextouch U-200] 56 unit SQ QAM 12/31/17 Montelukast [Singulair] 10 mg PO HS 12/31/17 Naproxen Sodium [Aleve] 500 mg PO BID 12/31/17 metFORMIN HCL [Glucophage] 1,000 mg PO BID 12/31/17 Albuterol Inhaler [Ventolin Hfa Inhaler] 1 puff INHALATION DAILY PRN 03/15/20 Cyclobenzaprine [Flexeril] 10 mg PO TID 03/15/20 Fluticasone Propion/Salmeterol [Advair 500-50 Diskus] 1 inhalation PO BID 03/15/20 Gabapentin [Neurontin] 100 mg PO TID 03/15/20 lisinopriL [Zestril] 5 mg PO DAILY 03/15/20 Diclofenac Sodium Gel [Voltaren 1% Gel] 100 gm TOPICAL BID 30 Days #1 each 08/27/23 Tirzepatide [Mounjaro] 5 mg SQ 09/04/23 oxyCODONE HCL [OxyIR] 5 mg PO Q6H PRN 09/04/23 Controlled Substance Measures - Controlled Substance Measures Is patient prescribed a controlled substance at discharge?: No
== END ==
LOC: PNWHC3 10:57
PROVIDERS: ATTEND Specialist
DX: M51.36 Other intervertebral disc degeneration, lumbar region (principal); F17.200 Nicotine dependence, unspecified, uncomplicated; Z91.018 Allergy to other foods
CPT/HCPCS: 99211

== ENCOUNTER → 2023-09-27 | Outpatient (CLI) | payer BC | END | disposition home or self-care (01) | LOC: LABPAT 10:27 | PROVIDERS: ATTEND Orthopaedic Surgery | DX: Z01.812 Encounter for preprocedural laboratory examination (principal); M54.2 Cervicalgia; M51.26 Other intervertebral disc displacement, lumbar region; Z22.322 Carrier or suspected carrier of Methicillin resistant Staphylococcus aureus | CPT/HCPCS: 36415; 86850; 86900; 86901; 87070 ==

== ENCOUNTER 2023-10-02 05:38 | Day surgery (SDC) | payer BC ==
--- NOTE | 2023-09-27 19:33 | P.HPOR ---
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 I reviewed the patient's clinical syndrome, physical findings, and imaging studies during the appointment today. It is my impression that the patient has a diagnosis of. 1. Lumbar spondylosis 2. L5-S1 HNP with inferior migration 3. Left lower extremity radiculopathy Spine Surgery Risk Review Mr. Zelaya is presenting for evaluation of low back and left lower extremity pain, left lower extremity numbness and tingling. It was my pleasure to have seen and examined Mr. Zelaya. In our visit today we have had a chance to go over subjective complaints, physical examination findings and treatments including the natural course history without intervention and various interventional options. The patients imaging demonstrates: XRay Lumbar Multiview (AP, Lateral, Flexion, Extension) with AP pelvis; [facility] - Re-reviewed with the patient today. DEMONSTRATES: Mild to moderate multilevel spondylitic and degenerative changes with preserved alignment. Mild disc height loss at L5-S1.Vertebral body heights are preserved. No acute osseous abnormalities. AP Pelvis: The visualized sacrum and iliac wings are within normal limits. CT [facility] 08[facility]23 of Lumbar Spine: - Re-reviewed with the patient today. IMPRESSION: No acute findings are evident. [facility] Lum[facility]ine: - Re-reviewed with the patient today. IMPRESSION: L5-S1 disc herniation with inferior migration of disc material which abuts the forming left nerve roots in the spinal canal with moderate spinal canal stenosis within the spinal canal at the level of S1. On physical exam, Mr. Zelaya demonstrates: A burning, throbbing lumbar pain with an onset the end of July 2023. patient states that he did have this incident approximately 1 year ago and perform physical therapy with relief of his symptoms. In addition to his low back pain patient reports that it radiates into the bilateral lower extremities, associated with numbness and tingling into his left foot. Patient reports the left lower extremity being more severe. Patient states he is unable to sit or stand for any period of time.He states he is barely able to walk throughout the day and has been off of work due to his symptom. He is having severe sleep disturbances. He finds occasional relief of his symptoms with laying on the floor with his feet up. I have explained to the patient that as their condition progresses it will cause further neurological deficits and eventual paralysis. Based on the patients imaging, physical exam, and the rapid progression and disabling nature of their symptoms, at this time I recommend surgery in the form of a: L5-S1 Left Minimally Invasive Laminoforaminotomy with Microdiscectomy. I discussed the risk and benefits of this procedure at length with Mr. Zelaya. The patient [significant other] agreed to considered pursuing the procedure above mentioned. Prior to surgery, she should follow up with her PCP (Cardio, ID, IM etc) for clearance. Questions were invited and answered, and the patient wishes to proceed as outlined below. Currently, I am recommendin.L5-S1 Left Minimally Invasive Laminoforaminotomy with Microdiscectomy 2.Review of surgical risks and benefits as well as an educational packet on the proposed surgical procedure. Risks: All surgical procedures come with inherent risks, including those related to positioning, anesthesia, intraoperative findings, and postoperative complications. It is important to understand that surgery does not come with any guarantee of a successful outcome as complications and adverse events are always possible. The patient was given a handout in office today discussing the surgical procedure and risks associated with the intervention, both of which were discussed with the patient. These risks include but are not limited to the following: * Experiencing same, different or even worse symptoms in back, neck, arms, or legs compared to before surgery. Requiring further surgery or other forms of treatment presently or at some time in the future at same or other levels of the intended spine surgery. On an extreme but fortunately relatively rare basis severe complication such as blindness, stroke, heart attack, temporary and/or permanent nerve injury, paralysis, coma, or may occur, sometimes without known explanation. Surgical complications may include but are not limited to risk of infection, fluid accumulation in the surgical dissection site, including a seroma or hematoma, that requires additional surgery, wound drainage, bleeding, new numbness or weakness, vision changes/loss, spinal fluid leakage, non-healing and/or infected incision, headaches, difficulty or inability to swallow, hoarseness, hemopneumothorax, pneumothorax, impotence, retrograde ejaculation, vaginal dryness; injury to nerves, spinal cord, blood vessels, lymphatics or other vital organs (i.e., bowel injury, injury to the great vessels); heterotopic bone formation; complications related to the hardware such as screws, rods, cages including misplaced hardware, device failure, instrumentation at the wrong spine level, hardware fracture/breakage, or hardware loosening; vertebral failure of the spinal column above or below the newly placed hardware; retained surgical instrumentations or devices and the need for further surgery. * Medical risks of the planned spine surgery include but are not limited to generalized Infections to the whole body or local areas outside of the surgical site (sepsis), heart attack, bleeding, anaphylaxis, meningitis, seizure, epilepsy, hearing loss, burn watkins, laceration of the head or other areas of the body, bruising, hypersensitivity of the skin, bladder over distension; allergic reaction; shoulder injury related to positioning; fat, blood and air clots to other areas of the body like heart, lungs, brain; failure of internal organs such as lungs, kidneys, liver and excessive bleeding. If blood transfusions are necessary, note that transfusions may cause intolerance reactions such as anaphylaxis or other complex reactions. Despite best efforts, the results of spine surgery might not heal in terms of bone, soft tissues such as skin, fascia, ligaments, and joints. Additionally, in order to achieve best possible results, spine surgery may be carried out beyond the initially planned levels and involve decompression, fusion including insertion of hardware at levels other than the original intended area of surgical interest change some portions of the procedure in order to ensure the best possible outcomes. With spine surgery and spinal fusion, there are different off label uses of instrumentation (devices, implants and hardware) as well as biological substances (bone morphogenic proteins, demineralized bone matrix) as well as using extra bone from allograft sources (i.e. cadaver bone) or autograft (iliac crest bone, ribs, or the spine itself). The patient has been given information about these practices and their inherent risks and benefits. [facility] is an educational center that serves as a training facility for neurosurgical and orthopedic [employer] and Nursing students. Physician assistants are medically trained surgical providers who function in the outpatient, inpatient, and operating room setting under the direct supervision of the attending surgeon. [facility] has multiple operating rooms with single and overlapping rooms running daily. They currently function under the required guidelines as produced by the [facility] Finance Committee with regards to the overlapping rooms and will continue to comply with changes to this policy as they occur. The requirements include and are complied with as follows: (1) the critical portions of the overlapping rooms will not occur at the same time, (2) the attending physician will be physically present during the critical portions of the procedure and immediately available during the entire case, and (3) a back-up attending is designated should the primary attending not be immediately available. The patient has had a chance to review all the listed information, has been given print outs detailing this information, and has had all his/her questions answered to their satisfaction. It was my pleasure to have seen and examined Mr. Zelaya. In our visit today we have had a chance to go over my understanding of our patient's current condition, the natural course history without intervention and various interventional options. Questions were invited and answered, and the patient wishes to proceed as outlined above. I have seen and examined the patient for 25 minutes and we have spent more than 50% of the time in repeat and detailed counseling about the patient's condition, its natural course history with out and as much as can be predicted with surgery and re-review of various surgical treatment options. In conclusion, Mr. Zelaya requested we proceed with the above suggested surgery and are willing to accept risks and limitations of the suggested surgery as nature of the disease process and our best attempts at treatment for the condition. Thank you again for allowing us to be part of your patient's care. Please don't hesitate to contact me if you have any further questions. Signed and authenticated by: [employer] P:\\\\ppart\\\\[id number]\\\\[id number]\\\\[id number]\\\\[id number] \\d Jose Tavarez DO [facility] [address] [place], [place] [id number] FOLLOW UP: Post Procedure PATIENT EDUCATION: Medications Reviewed: YES In our visit today Mr. Zelaya and I have had a chance to go over my understanding of the patient's current condition, the natural course history without intervention and various interventional options. Questions were invited and answered, and the patient wishes to proceed as outlined above. I will be sure to keep you updated after Mr. Zelaya returns here for further follow-up. Thank you again for your referral. Please do not hesitate to contact me if you have any further questions. Signed and authenticated by: Jose Tavarez DO [facility] [address] [place] [address], [place] [id number] This message is confidential, intended only for the named recipient(s) and may contain information that is privileged or exempt from disclosure under applicable law. If you are not the intended recipient(s), you are notified that the dissemination, distribution or copying of this information is strictly prohibited. If you received this message in error, please notify the sender then delete this message. Past Medical History Past Medical History: COPD, Diabetes Mellitus Additional Past Medical History / Comment(s): neck pain radiating to shoulder from bulging disk History of Any Multi-Drug Resistant Organisms: None Reported Additional Past Surgical History / Comment(s): surgery for "ruptured septum"; pain procedures Past Anesthesia/Blood Transfusion Reactions: No Reported Reaction Past Psychological History: No Psychological Hx Reported Smoking Status: Current every day smoker Past Alcohol Use History: Rare Additional Past Alcohol Use History / Comment(s): started smoking age 18, smokes < 1 PPD Past Drug Use History: None Reported - Past Family History Mother Family Medical History: No Reported History Medications and Allergies Home Medications Medication Instructions Recorded Confirmed Type Dulaglutide [Trulicity] 1.5 mg SQ MO 12/31/17 09/04/23 History Insulin Degludec [Tresiba 56 unit SQ QAM 12/31/17 09/04/23 History Flextouch U-200] Montelukast [Singulair] 10 mg PO HS 12/31/17 09/04/23 History Naproxen Sodium [Aleve] 500 mg PO BID 12/31/17 09/04/23 History metFORMIN HCL [Glucophage] 1,000 mg PO BID 12/31/17 09/04/23 History Albuterol Inhaler [Ventolin Hfa 1 puff INHALATION DAILY PRN 03/15/20 09/04/23 History Inhaler] Cyclobenzaprine [Flexeril] 10 mg PO TID 03/15/20 09/04/23 History Fluticasone Propion/Salmeterol 1 inhalation PO BID 03/15/20 09/04/23 History [Advair 500-50 Diskus] Gabapentin [Neurontin] 100 mg PO TID 03/15/20 09/04/23 History lisinopriL [Zestril] 5 mg PO DAILY 03/15/20 09/04/23 History Diclofenac Sodium Gel [Voltaren 1% 100 gm TOPICAL BID 30 Days #1 each 08/27/23 09/04/23 Rx Gel] Tirzepatide [Mounjaro] 5 mg SQ 09/04/23 History oxyCODONE HCL [OxyIR] 5 mg PO Q6H PRN 09/04/23 09/04/23 History Allergies Allergy/AdvReac Type Severity Reaction Status Date / Time tomato Allergy Rash/Hives Verified 09/20/23 11:03 Physical Examination Osteopathic Statement: *. No significant issues noted on an osteopathic stru ctural exam other than those noted in the History and Physical/Consult.
[2023-10-01 09:17] VITALS: BMI 26.8
[~2023-10-02 05:38] MED LIST changes: +ACETAMINOPHEN TAB 500 MG TAB PO PRN; +GABAPENTIN 300 MG CAP PO PRN; -HYDROmorphone 0.5 MG/0.5 ML SYRINGE IVP PRN; -LACTATED RINGERS 1,000 ML IV SCH; -MIDAZOLAM 2 MG/2 ML VIAL IV PRN; +TRANEXAMIC 1,000 MG/100ML-NACL 1,000 MG in SALINE 1 100ML.BAG IVPB PRN
[2023-10-02] MEDS: LACTATED RINGERS 1,000 ML IV SCH (06:30)
[2023-10-02 06:34] LABS: Glucose,Whole Blood 138 mg/dL (70-110)
[2023-10-02] MEDS: ONDANSETRON 4 MG/2 ML VIAL IVP PRN (06:50)
[2023-10-02] MEDS ORDERED: ONDANSETRON 4 MG/2 ML VIAL ONE (06:55)
[2023-10-02] MEDS ORDERED: MIDAZOLAM 2 MG/2 ML VIAL IV PRN (07:00)
[2023-10-02] MEDS ORDERED: HYDROmorphone 0.5 MG/0.5 ML SYRINGE IVP PRN (07:00)
[2023-10-02] MEDS ORDERED: SUCCINYLCHOLINE CHLORIDE 200 MG/10 ML VIAL IV ONE (07:25)
[2023-10-02] MEDS ORDERED: PROPOFOL 10 MG/ML 20 ML VIAL IV ONE (07:25)
[2023-10-02] MEDS ORDERED: PHENYLEPHRINE 10 MG/ML VIAL ONE (07:25)
[2023-10-02] MEDS ORDERED: KETAMINE HCL IN 0.9 % NACL 50 MG/5 ML SYRINGE ONE (07:25)
[2023-10-02] MEDS ORDERED: HYDROmorphone (PF) 1 MG/ML ONE (07:25)
[2023-10-02] MEDS ORDERED: TRANEXAMIC 1,000 MG/100ML-NACL PREMIX BAG ONE (07:25)
[2023-10-02] MEDS ORDERED: NEOSTIGMINE 1 MG/ML 10 ML VIAL ONE (07:25)
[2023-10-02] MEDS ORDERED: fentaNYL (PF) 50 MCG/ML 2 ML AMP ONE (07:25)
[2023-10-02] MEDS ORDERED: ePHEDrine 50 MG/ML 1 ML VIAL ONE (07:25)
[2023-10-02] MEDS ORDERED: LIDOCAINE 1% INJ 10MG/ML (20 ML MDV) ONE (07:25)
[2023-10-02] MEDS ORDERED: ROCURONIUM 10 MG/ML (5 ML VIAL) IV ONE (07:25)
[2023-10-02] MEDS ORDERED: MIDAZOLAM 2 MG/2 ML VIAL ONE (07:25)
[2023-10-02] MEDS ORDERED: GLYCOPYRROLATE 0.2 MG/ML 2 ML VIAL ONE (07:25)
[2023-10-02] MEDS: THROMBIN (BOVINE) 5,000 UNIT VIAL MISCELLANE ONE (07:55)
[2023-10-02] MEDS: LIDOCAINE 2%-EPI 1:100,000 20 ML VIAL SQ ONE ×2 (08:10)
[2023-10-02] MEDS: BUPIVACAIN-EPI 0.5%-1:200,000 30 ML VIAL SQ ONE ×2 (08:10)
--- NOTE | 2023-10-02 08:43 | P.OP ---
Date of Procedure: 10/02/23 Preoperative Diagnosis: 1. L5-S1 HNP WITH STENOSIS, EXTRUDED DISC 2. LLE RADICULOPATHY 3. LLE WEAKNESS 4. LLE PARESTHESIAS 5. LOW BACK PAIN Postoperative Diagnosis: 1. L5-S1 HNP WITH STENOSIS, EXTRUDED DISC 2. LLE RADICULOPATHY 3. LLE WEAKNESS 4. LLE PARESTHESIAS 5. LOW BACK PAIN Procedure(s) Performed: 1. L5-S1 LAMINOFORAMINOTOMY WITH MICRODISCECTOMY (MIS, LEFT) USE OF IO MICROSCOPE Implants: NONE Anesthesia: GABRIELE Surgeon: Jose Tavarez Geotechnical Laboratory Technician #1: Jose Gee (WAS PRESENT AND ASSISTED WITH ALL ASPECTS OF THE CASE FROM POSITION TO CLOSURE) Estimated Blood Loss (ml): 20 IV fluids (ml): 900 Urine output (ml): 0 Pathology: none sent Condition: stable Disposition: PACU Indications for Procedure: Mr. Zelaya is presenting for evaluation of low back and left lower extremity pain, left lower extremity numbness and tingling. It was my pleasure to have seen and examined Mr. Zelaya. In our visit today we have had a chance to go over subjective complaints, physical examination findings and treatments including the natural course history without intervention and various interventional options. The patients imaging demonstrates: XRay Lumbar Multiview (AP, Lateral, Flexion, Extension) with AP pelvis; [facility] - Re-reviewed with the patient today. DEMONSTRATES: Mild to moderate multilevel spondylitic and degenerative changes with preserved alignment. Mild disc height loss at L5-S1.Vertebral body heights are preserved. No acute osseous abnormalities. AP Pelvis: The visualized sacrum and iliac wings are within normal limits. CT [facility] from 08/15/23 of Lumbar Spine: - Re-reviewed with the patient today. IMPRESSION: No acute findings are evident[facility]: - Re-reviewed with the patient today. IMPRESSION: L5-S1 disc herniation with inferior migration of disc material which abuts the forming left nerve roots in the spinal canal with moderate spinal canal stenosis within the spinal canal at the level of S1. On physical exam, Mr. Zelaya demonstrates: A burning, throbbing lumbar pain with an onset the end of July 2023. patient states that he did have this incident approximately 1 year ago and perform physical therapy with relief of his symptoms. In addition to his low back pain patient reports that it radiates into the bilateral lower extremities, associated with numbness and tingling into his left foot. Patient reports the left lower extremity being more severe. Patient states he is unable to sit or stand for any period of time.He states he is barely able to walk throughout the day and has been off of work due to his symptom. He is having severe sleep disturbances. He finds occasional relief of his symptoms with laying on the floor with his feet up. I have explained to the patient that as their condition progresses it will cause further neurological deficits and eventual paralysis. Based on the patients imaging, physical exam, and the rapid progression and disabling nature of their symptoms, at this time I recommend surgery in the form of a: L5-S1 Left Minimally Invasive Laminoforaminotomy with Microdiscectomy. I discussed the risk and benefits of this procedure at length with Mr. Zelaya. The patient [significant other] agreed to considered pursuing the procedure above mentioned. Prior to surgery, she should follow up with her PCP (Cardio, ID, IM etc) for clearance. Questions were invited and answered, and the patient wishes to proceed as outlined below. Currently, I am recommendin.L5-S1 Left Minimally Invasive Laminoforaminotomy with Microdiscectomy Description of Procedure: L5-S1 LEFT Microdisc (MIS) The patient was seen and examined in the preoperative area. All preoperative protocols were followed. Informed consent was obtained, risks and benefits of the procedure were discussed at length. Risks including bleeding infection damage to the surrounding tissue and risk of reoperation were discussed with the patient. Risk of anesthesia up to and including was discussed with the patient. These are outlined in the risk review. They were willing to accept these risks and all the risks of surgery. The patient was given a weight-based dose of antibiotics in the form of 2 g Ancef. The patient was seen and evaluated by the anesthesia team who deemed them fit for surgery. The site was marked, the patient was willing to proceed with the procedure. The patient was transferred to the operative suite by the Department of anesthesia. They were then drifted off to sleep by the department anesthesia and GETA was performed. The patient tolerated this well. Chau catheter was placed by nursing staff, a-traumatically. Once confirmation of lines and ventilation the patient was transferred to a prone Kvng table very carefully. All bony prominences including wrists, elbows, axilla, chest, hips, and thighs, and feet were padded very well. Special attention was paid to the genitalia, and these were padded accordingly. SCDs were placed on bilateral lower extremities and were connected. Arms were well padded and placed on arm boards up and out in the 90/90 position. Once in position, again we confirmed good ventilation capabilities and that lines were running appropriately. The patients Lumbar spine was then exposed. 1010s were placed outlining the incision site. Standard alcohol was used to clean the incision site and allowed to dry. C-arm was used to needle localize the pedicles at L5-S1 and bio-melissa the patient and confirm level for incision which was marked with a skin marker. Operative briefing was performed with all teams and everyone in agreement to proceed. The patient was then prepped and draped in a normal sterile fashion. Timeout was then performed, and all parties agreed with the procedure to be performed. Skin incision was made over the previously marked area. Fluoroscopy was then used to target the lamina and facet joints on the right hand side of L5-S1 and initial dilator for tubular retractor system was used to identify this area. Once in a good position, sequential dilation was taken up to 26 mm and tube selected. A 80 mm tube was then placed and secured to the table. This was confirmed to be in good position on AP and Lateral imaging. Limited myomectomy was then done to identify the lamina, interlaminar space, and facet joints. Emory-laminotomy, partial medial facetectomy and foraminotomy were performed at L5-S1 using high speed sheryl and Kerrison rongure, curette and pituitary. The ligamentum flavum was removed with Kerrison and curette. Dura and nerve roots protected. The disc space was identified along with the herniation. 11 blade was used to make small annulotomy and micro-pituitary used to remove loose disc fragments. Once fragments were removed, down biting curette was used to push any medial fragments down and towards the annulotomy and decompress centrally. The disc space was irrigated, and any loose fragments removed again. Bipolar w as used for hemostasis and scarring of the annulotomy. The area was irrigated, and meticulous hemostasis performed. The bed was inspected, and all roots have ample room and are decompressed along with the dura. There were no injuries. Retractors were then removed. The wound was copiously irrigated with NSS. The deep fascia was closed with 0 PDS. Deep sub-q with 0 Vicryl and superficial with 2-0 Vicryl. Subcuticular was closed with 3-0 stratafix. The wound edges approximated well. The wound was then cleaned, and glue tape placed on the skin and allowed to dry. It was then Covered with an Opifoam dressing. The patient was then transferred off the table back to their hospital bed a- traumatically. They were extubated by the department of anesthesia. They were then transferred to PACU in stable condition having tolerated the procedure with no complications.
--- NOTE | 2023-10-02 09:07 | FL ---
EXAMINATION TYPE: FL guidance operating room DATE OF EXAM: 10/02/2023 HISTORY: Fluoroscopy time Total dose area product (DAP) in uGy*m?, mGy*cm? (or similar): 2.5325 IMPRESSION: 1. Fluoroscopy time.
--- NOTE | 2023-10-02 09:11 | XR ---
EXAM TYPE: LUMBAR SPINE X RAY SERIES COMPARISON: NONE HISTORY: flouro TECHNIQUE: 4 views are submitted. FINDINGS: Intraoperative images are submitted. Metallic needle is seen overlying the lower lumbar spine. Multil evel hypertrophic changes. IMPRESSION: 1. See above.
[2023-10-02] MEDS: HYDROmorphone 0.5 MG/0.5 ML SYRINGE IVP ONE (09:21)
[2023-10-02 09:25] LABS: Glucose,Whole Blood 156 mg/dL (70-110)
[2023-10-02 09:35] VITALS: TEMP 97
[2023-10-02 10:21] VITALS: RESP 18
[2023-10-02 11:06] VITALS: BP 103/69; PULSE 83
== END 2023-10-02 11:09 | disposition home or self-care (01) ==
LOC: OR 05:38
PROVIDERS: ATTEND Orthopaedic Surgery
DX: M48.07 Spinal stenosis, lumbosacral region (principal); M51.27 Other intervertebral disc displacement, lumbosacral region; M47.816 Spondylosis without myelopathy or radiculopathy, lumbar region; J44.9 Chronic obstructive pulmonary disease, unspecified; E11.9 Type 2 diabetes mellitus without complications; F17.210 Nicotine dependence, cigarettes, uncomplicated; Z79.1 Long term (current) use of non-steroidal anti-inflammatories (NSAID); Z79.51 Long term (current) use of inhaled steroids; Z79.84 Long term (current) use of oral hypoglycemic drugs; Z79.899 Other long term (current) drug therapy; Z91.018 Allergy to other foods
CPT/HCPCS: 84132; 72100; 63030; C1762; J2250; J0330; J2710; J0690; J2405; J2001; J3010; J1170 ×2; J2704; J2371

== ENCOUNTER → 2024-05-21 | Outpatient (CLI) | payer OTHER ==
--- NOTE | 2024-05-22 06:17 | MR ---
EXAMINATION TYPE: MR shoulder RT wo con DATE OF EXAM: 05/21/2024 6:35 PM COMPARISON: MRI right shoulder 2014 CLINICAL INDICATION: Male, 59 years old with history of M25.511 PAIN IN RIGHT SHOULDER, Severe pain R T shoulder since Mar 2024, Painful to raise arm IV Contrast: cc (None if empty) TECHNIQUE: Multiplanar, multisequence imaging of the right shoulder is performed without contrast. FINDINGS: Rotator Cuff: Infraspinatus tendon remains intact. Increased signal supraspinatus tendon with full-th ickness retracted tear of the anterior 1/2-1/3 fibers. Intact subscapularis tendon with some new surr ounding fluid. Rotator cuff muscle bulk is preserved. Acromioclavicular Joint: More prominent moderate to severe narrowing and moderate spurring/capsular h ypertrophy. Type II downsloping acromion is now present. Glenohumeral Joint: Moderate size joint effusion more prominent versus prior. No significant spurring . Labrum: Heterogeneous increased signal likely reflecting degenerative tear. Biceps Tendon: The long head of biceps is in normal location within bicipital groove. Bone marrow signal: Subchondral cystic change lateral aspect of the humeral head.. Other: No additional significant abnormality is appreciated. IMPRESSION: 1. More prominent tendinosis and new partial tearing of the supraspinatus tendon. 2. New type II downsloping acromion. More prominent moderate to severe AC joint arthropathy. 3. Moderate-sized glenohumeral joint effusion increased in size from prior. 4. Likely degenerative superior labral tear new from prior. [facility], , 05/22/2024 6:15 AM
== END | disposition home or self-care (01) ==
LOC: RADMRIMAIN 17:57
PROVIDERS: ATTEND Family Medicine
DX: M19.011 Primary osteoarthritis, right shoulder (principal); M75.111 Incomplete rotator cuff tear or rupture of right shoulder, not specified as traumatic; M67.813 Other specified disorders of tendon, right shoulder; M25.411 Effusion, right shoulder

== ENCOUNTER → 2024-06-18 | Outpatient (CLI) | payer OTHER ==
[2024-06-18 19:14] LABS: Basophils % (A) 0.9 %; Eosinophils # (A) 0.24 X 10*3/uL (0.04-0.35); Eosinophils % (A) 2.3 %; HCT 42.6 % (39.6-50.0); HGB 14.1 g/dL (13.0-17.0); Lymphocytes # (A) 2.77 X 10*3/uL (0.90-5.00); Lymphocytes % (A) 26.2 %; MCH 30.3 pg (27.0-32.0); MCHC 33.1 g/dL (32.0-37.0); MCV 91.6 FL (80.0-97.0); Monocytes # (A) 0.66 X 10*3/uL (0.20-1.00); Monocytes % (A) 6.2 %; NRBC Per 100 WBC 0 X 10*3/uL (0.00-0.01); Neutrophils # (A) 6.78 X 10*3/uL (1.80-7.70); Neutrophils % (A) 64.1 %; Platelet Count 342 X 10*3/uL (140-440); RBC 4.65 X 10*6/uL (4.40-5.60); WBC 10.58 X 10*3/uL (4.50-10.00)
[2024-06-18 19:25] LABS: Chloride 104 mmol/L (96-109); Glucose 130 mg/dL (70-110); Potassium 5.1 mmol/L (3.5-5.5); Sodium 138 mmol/L (135-145)
[2024-06-18 19:26] LABS: Calcium 9.1 mg/dL (8.7-10.3); Carbon Dioxide 22.8 mmol/L (21.6-31.8)
== END | disposition home or self-care (01) ==
LOC: LABPAT 12:02
PROVIDERS: ATTEND Orthopaedic Surgery
DX: Z01.818 Encounter for other preprocedural examination (principal); I49.8 Other specified cardiac arrhythmias; M75.41 Impingement syndrome of right shoulder; R94.31 Abnormal electrocardiogram [ECG] [EKG]
CPT/HCPCS: 36415; 80048; 83036; 85025; 93005

== ENCOUNTER 2024-07-04 07:07 | Day surgery (SDC) | payer OTHER ==
--- NOTE | 2024-07-03 09:25 | P.HPOR ---
History of Present Illness H&P Date: 07/03/24 Chief Complaint: Right shoulder pain The patient is a 59-year-old male who presents with a 4-year history of progressive right shoulder pain. He notes it is worsened over the past 3 months. He is having pain with overhead activity and at night. He notes limited motion. He did hurt himself 3 months ago jamming his shoulder while getting dressed. He has tried therapy in addition to medications without much relief. He notes daily pain that limits him. Review of Systems Per HPI Past Medical History Past Medical History: COPD, Diabetes Mellitus, Hypertension, Musculoskeletal Disorder, Osteoarthritis (OA) Additional Past Medical History / Comment(s): ROM problem w/neck, bulging disc in neck, scaffolding accident 2002 that shattered left ankle History of Any Multi-Drug Resistant Organisms: None Reported Past Surgical History: Back Surgery, Orthopedic Surgery Additional Past Surgical History / Comment(s): surgery for "ruptured septum"; pain procedures, colonoscopy Past Anesthesia/Blood Transfusion Reactions: No Reported Reaction Smoking Status: Current every day smoker - Past Family History Mother Family Medical History: No Reported History Medications and Allergies Home Medications Medication Instructions Recorded Confirmed Type Montelukast [Singulair] 10 mg PO HS 12/31/17 07/01/24 History Naproxen Sodium [Aleve] 500 mg PO BID 12/31/17 07/01/24 History metFORMIN HCL [Glucophage] 1,000 mg PO BID 12/31/17 07/01/24 History Albuterol Inhaler [Ventolin Hfa 1 puff INHALATION DAILY PRN 03/15/20 07/01/24 History Inhaler] Cyclobenzaprine [Flexeril] 10 mg PO BID 03/15/20 07/01/24 History Fluticasone Propion/Salmeterol 1 inhalation PO BID 03/15/20 07/01/24 History [Advair 500-50 Diskus] lisinopriL [Zestril] 5 mg PO DAILY 03/15/20 07/01/24 History Gabapentin 600 mg PO BID 10/01/23 07/01/24 History Insulin Glargine,Hum.rec.anlog 62 units SQ QAM 07/01/24 07/01/24 History [Lantus Solostar Pen] Semaglutide [Ozempic] 0.5 mg SQ SA 07/01/24 07/01/24 History Allergies Allergy/AdvReac Type Severity Reaction Status Date / Time tomato Allergy Rash/Hives Verified 07/01/24 14:52 Physical Examination - Shoulder right Tenderness with palpation: anterior, bicipital groove Pain: with abduction, with forward flexion ROM: forward flexion: 100 degrees ROM: internal rotation: lower lumbar ROM: external rotation: 50 degrees Crepitus with motion: Yes Strength: abduction: 4/5 Tests: internal impingement tests: positive, external impingment tests: positive Results The patient is a well-developed well-nourished male approximately 6 foot tall, 212 pounds of mesomorphic habitus. HEENT exam is nonfocal, neck is supple. He is tender about the right shoulder anterior subacromial space. Moderate crepitus is noted. Impingement test, Neer test, and Speed test are positive. His distal neurovascular exam appears intact in the right upper extremity. - Diagnostic results Shoulder MRI: image reviewed (MRI of the right shoulder shows evidence of a fu ll-thickness rotator cuff tear with mild retraction.) Assessment and Plan Assessment: Right shoulder impingement/symptomatic rotator cuff tear Plan: I talked to the patient at length regarding his condition along with treatment options. At this point he remains quite symptomatic despite conservative measures. After a thorough discussion he opts to proceed with surgery. We will plan to proceed with right shoulder arthroscopy with possible subacromial decompression, rotator cuff repair, in addition to possible biceps tenotomy. Risks and benefits were discussed at length in layman's terms. We will likely perform that as an outpatient procedure.
[~2024-07-04 07:07] MED LIST changes: -ACETAMINOPHEN TAB 500 MG TAB PO PRN; -GABAPENTIN 300 MG CAP PO PRN; +HYDROmorphone 0.5 MG/0.5 ML SYRINGE IVP PRN; +SCOPOLAMINE 1 MG/72 HR PATCH TRANSDERM ONE; -TRANEXAMIC 1,000 MG/100ML-NACL 1,000 MG in SALINE 1 100ML.BAG IVPB PRN
[2024-07-04 07:49] LABS: Glucose,Whole Blood 141 mg/dL (70-110)
[2024-07-04] MEDS: LACTATED RINGERS 1,000 ML IV SCH (08:01)
[2024-07-04] MEDS: MIDAZOLAM 2 MG/2 ML VIAL IV PRN (08:02)
[2024-07-04] MEDS: DEXAMETHASONE SOD PHOSPHATE 4 MG/ML 1 ML VIAL IV ONE (08:05)
[2024-07-04] MEDS: ONDANSETRON 4 MG/2 ML VIAL IVP ONE (08:05)
[2024-07-04] MEDS: IV FLUID CONTINUATION 1,000 ML IV ONE ×2 (08:16→12:55)
--- NOTE | 2024-07-04 08:18 | P.ANPRN ---
Procedure Note - Anesthesia - Nerve Block Performed Right Interscalene Single Time Out Performed: Yes (0802) Date of Procedure: 07/04/24 Procedure Start Time: :02 Procedure Stop Time: 08:07 Location of Patient: PreOp Indication: Acute Post-Operative Pain, Requested by Surgeon Sedation Type: Sedate with meaningful contact maintained Preparation: Sterile Prep, Sterile Dressing Position: Sitting Catheter: None Needle Types: Pajunk Needle Gauge: Other (see comment) (22G) Ultrasound used to visualize needle placement: Yes Ultrasound used to observe medication spread: Yes Injectate: 0.5% Ropivacaine (see comment for volume) (21 mL of block solution containing 20 mL of 0.5% ropivacaine mixed with 4 mg of dexamethasone) Blood Aspirated: No Pain Paresthesia on Injection Noted: No Resistance on Injection: Normal Image Stored and Saved: Yes Events: Uneventful and Well Tolerated
[2024-07-04 08:42] LABS: Glucose,Whole Blood 123 mg/dL (70-110)
[2024-07-04] MEDS ORDERED: DEXAMETHASONE SOD PHOSPHATE 4 MG/ML 1 ML VIAL ONE (09:49)
[2024-07-04] MEDS ORDERED: PROPOFOL 10 MG/ML 20 ML VIAL IV ONE (09:49)
[2024-07-04] MEDS ORDERED: LIDOCAINE 1% INJ 10MG/ML (20 ML MDV) ONE (09:49)
[2024-07-04] MEDS ORDERED: ePHEDrine 50 MG/ML 1 ML VIAL ONE (09:49)
[2024-07-04] MEDS ORDERED: PHENYLEPHRINE 10 MG/ML VIAL ONE (09:49)
[2024-07-04] MEDS ORDERED: ROPIVACAINE 5 MG/ML 30 ML VIAL ONE (09:49)
[2024-07-04] MEDS ORDERED: SUCCINYLCHOLINE CHLORIDE 200 MG/10 ML VIAL IV ONE (09:49)
[2024-07-04] MEDS ORDERED: LIDOCAINE 4% LTA KIT (4 ML) TOPICAL ONE (09:49)
[2024-07-04] MEDS ORDERED: WATER FOR INJECTION, STERILE 10 ML VIAL IV ONE (09:49)
[2024-07-04] MEDS: EPINEPHrine (PF) 1 ML in SODIUM CHLORIDE 0.9% IRRIGATIO 3,000 ML IRRIGATION ONE ×4 (10:16)
--- NOTE | 2024-07-04 11:21 | P.OP ---
Date of Procedure: 07/04/24 Preoperative Diagnosis: Right shoulder impingement/symptomatic rotator cuff tear Postoperative Diagnosis: Same Procedure(s) Performed: Right shoulder arthroscopic subacromial decompression/biceps tenotomy/rotator cuff repair Implants: Arthrex 4.75 mm swivel lock anchor x 2, 5.5 mm swivel lock anchor x 2 Anesthesia: amy SUAZO Surgeon: Claus Hicks Longshore Equipment Operator #1: Jose Gee Estimated Blood Loss (ml): 10 Pathology: none sent Condition: stable Disposition: PACU Indications for Procedure: The patient is a 59-year-old male who presents with progressive right shoulder pain and weakness despite conservative measures. A discussion of the risks and benefits of operative intervention versus continued conservative measures was made with the patient. He opted to proceed with surgery. Operative risks include infection, neurovascular injury, development of blood clots, possible tendon rerupture, possible postoperative stiffness, and possible need for subsequent procedures was discussed. Informed consent was obtained. Operative Findings: As below Description of Procedure: The patient was brought to the operating room, and after induction of general anesthesia was placed in a beachchair position. A preoperative interscalene block was placed for postoperative analgesia. I examined the right shoulder. There was no gross block to passive motion or gross glenohumeral instability. The right upper extremity was prepped and draped in normal fashion. The bony outlines the acromion, distal clavicle, and coracoid process were outlined with a skin marker. The glenohumeral joint was inflated with 50 mL of saline utilizing a spinal needle from posterior approach. A posterior portal was made through a 5 mm skin incision 1 cm medial and inferior to the posterior lateral border time. A blunt trocar was used to easily into the joint. Diagnostic arthroscopy was performed. An anterior portal was made just lateral to the coracoid process entering the joint above the subscapularis tendon. The subscapularis tendon appeared to be intact. Anterior labrum was intact. The inferior recess was inspected. The posterior labrum was intact. There was a high-grade partial-thickness tear of the long head of the biceps involving interarticular portion. It was elected to proceed with release at this point. This was released from the superior labrum with electrocautery and was allowed to retract to the bicipital groove. On inspection the rotator cuff, a full- thickness tear involving the supraspinatus was noted with some retraction. The arthroscope was placed into the subacromial space. A lateral portal was made 2 centimeters inferior to the anterior lateral border of the acromion. The rotator cuff was then mobilized with a traction suture. This was then easily brought back to the greater tuberosity. The soft tissue on the undersurface of the acromion was debrided with a motorized shaver and electrocautery clearly defining the anterior medial and lateral borders as well as the distal clavicle. An anterior inferior acromioplasty was performed with a motorized sheryl starting anterolateral, then extending this posteriorly, then extending this medially. I converted to a flat acromion and this was verified in the posterior and lateral viewing portals. The greater tuberosity was lightly decorticating with a shaver down to a bleeding bony surface. An accessory superior lateral portals made just off the lateral edge of the acromion for anchor placement. 2 anchors were then placed just off the articular surface with the appropriate starting awl. 4.75 mm anchors preloaded with #2 fiber tape were placed. Good purchase was obtained. These fiber tapes were then passed the rotator cuff with a scorpion suture passer. A lateral row was created crisscrossing these tapes. 5.5 mm swivel lock anchors x2 were placed laterally. The anterior anchor did not have good purchase therefore an alternate tunnel was punched in the anchor placed. Good purchase was obtained. Final arthroscopic view showed adequate compression at the footprint. The arthroscope was then removed. The portals were closed with simple 3-0 nylon sutures. A sterile dressing was applied in addition to an abductor brace. The patient was then awoken from general anesthesia and transferred to recovery room in good condition. Blood loss was estimated at 10 mL. No complications were incurred. Sponge and needle counts were correct in the case. Jose MURPHY assisted and the major components of the case to include arm positioning, anchor placement, and rotator cuff repair.
[2024-07-04 11:33] VITALS: TEMP 97
[2024-07-04 11:48] LABS: Glucose,Whole Blood 193 mg/dL (70-110)
[2024-07-04 13:28] VITALS: BP 102/70; PULSE 88; RESP 20
== END 2024-07-04 14:18 | disposition home or self-care (01) ==
LOC: OR 07:07
PROVIDERS: ATTEND Orthopaedic Surgery
DX: M75.41 Impingement syndrome of right shoulder (principal); M25.811 Other specified joint disorders, right shoulder; G89.18 Other acute postprocedural pain; I10 Essential (primary) hypertension; E11.9 Type 2 diabetes mellitus without complications; E78.5 Hyperlipidemia, unspecified; J44.89 Other specified chronic obstructive pulmonary disease; M19.90 Unspecified osteoarthritis, unspecified site; F17.210 Nicotine dependence, cigarettes, uncomplicated; Z79.84 Long term (current) use of oral hypoglycemic drugs; Z79.51 Long term (current) use of inhaled steroids; Z79.1 Long term (current) use of non-steroidal anti-inflammatories (NSAID); Z79.4 Long term (current) use of insulin; Z79.85 Long-term (current) use of injectable non-insulin antidiabetic drugs; Z79.899 Other long term (current) drug therapy; Z91.018 Allergy to other foods; X50.1XXA Overexertion from prolonged static or awkward postures, initial encounter; Y93.89 Activity, other specified; Y92.9 Unspecified place or not applicable; Y99.9 Unspecified external cause status
CPT/HCPCS: 29827; 29826; 64415; C1713 ×3; C1894; J2250; J1100; J0690; J2405; J0171